=== PATIENT | female | born 1985 | race African-American/Black ===

== ENCOUNTER 2021-04-18 09:12 | Outpatient (REF) | payer OTHER, SELFPAY ==
[2021-04-18 11:28] LABS: MANUAL DIFF FLAG NO
[2021-04-18 11:52] LABS: Basophils Percent Auto 0.6 % (0-2); Eosinophils Absolute Auto 0.1 X10*3/uL (0.0-0.4); Eosinophils Percent Auto 1.7 % (0-4); Hematocrit 31.6 % (37.0-47.0); Hemoglobin 9.6 g/dl (12.0-16.0); Imm Gran Abs Auto 0.01 X10*3/uL (0.00-0.03); Imm Gran Pct Auto 0.2 % (0.0-0.4); Lymphocytes Absolute Auto 1.9 X10*3/uL (1.2-4.9); Lymphocytes Percent Auto 35.8 % (20-40); Mean Corpuscular HGB Conc 30.4 g/dl (31.0-35.0); Mean Corpuscular Hemoglobin 23.2 pg (27.0-33.0); Mean Corpuscular Volume 76.3 fL (80.0-98.0); Mean Platelet Volume 10.5 fL (9.4-12.3); Monocytes Absolute Auto 0.4 X10*3/uL (0.1-1.2); Monocytes Percent Auto 7.3 % (2-11); Neutrophils Absolute Auto 2.9 x10*3/uL (2.0-8.3); Neutrophils Percent Auto 54.4 % (45-73); Platelet Count 343 X10*3/uL (160-400); Red Blood Count 4.14 X10*6/uL (4.20-5.50); Red Cell Distribution Width 20.9 % (11.0-16.0); White Blood Count 5.3 X10*3/uL (4.8-10.8)
[2021-04-18 12:08] LABS: Alanine Aminotransferase 44 U/L (0-31); Albumin Level 4.3 g/dL (3.5-5.0); Alkaline Phosphatase 54 U/L (39-117); Anion Gap 12 (12-20); Aspartate Amino Transferase 36 U/L (5-31); Bilirubin Total 0.5 mg/dL (0.0-1.0); Blood Urea Nitrogen 12 mg/dL (9-16); Calcium 9.4 mg/dL (8.4-10.2); Carbon Dioxide 23 mmol/L (22-29); Chloride 106 mmol/L (96-108); Cholesterol 201 mg/dL; Estimated Glomerular Filt Rate > 60; Glucose Fasting 77 mg/dL (60-99); HDL Cholesterol 40 mg/dL; Iron 53 mcg/dL (30-160); LDL Cholesterol Calculated 139 mg/dl; Percent Iron Saturation 13 % (15-50); Potassium 4.2 mmol/L (3.3-5.1); Sodium 137 mmol/L (135-145); Total Iron Binding Capacity 420 mcg/dL (228-428); Total Protein 7.9 g/dL (6.5-8.0); Triglycerides 112 mg/dL; Unsaturated Iron Binding 367 ug/dL
[2021-04-18 12:31] LABS: Vitamin D 25-OH Total 6.9 ng/mL (>30)
== END 2021-04-18 09:13 | disposition home or self-care (01) ==
LOC: HO.HMGCLDS 09:12
PROVIDERS: PCP Internal Medicine; Visit Provider Internal Medicine
DX: I10 Essential (primary) hypertension (principal); D50.9 Iron deficiency anemia, unspecified
CPT/HCPCS: 36415; 80053; 80061; 82306; 83540; 85025

== ENCOUNTER 2021-08-13 11:29 | Outpatient (REF) | payer OTHER, SELFPAY ==
[2021-08-13 13:50] LABS: MANUAL DIFF FLAG NO
[2021-08-13 14:02] LABS: Basophils Percent Auto 0.5 % (0-2); Eosinophils Absolute Auto 0.1 X10*3/uL (0.0-0.4); Eosinophils Percent Auto 1.4 % (0-4); Hematocrit 28.5 % (37.0-47.0); Hemoglobin 8.5 g/dl (12.0-16.0); Imm Gran Abs Auto 0.02 X10*3/uL (0.00-0.03); Imm Gran Pct Auto 0.3 % (0.0-0.4); Lymphocytes Absolute Auto 2.4 X10*3/uL (1.2-4.9); Lymphocytes Percent Auto 36.3 % (20-40); Mean Corpuscular HGB Conc 29.8 g/dl (31.0-35.0); Mean Corpuscular Hemoglobin 22.5 pg (27.0-33.0); Mean Corpuscular Volume 75.4 fL (80.0-98.0); Mean Platelet Volume 11.2 fL (9.4-12.3); Monocytes Absolute Auto 0.3 X10*3/uL (0.1-1.2); Monocytes Percent Auto 5.1 % (2-11); Neutrophils Absolute Auto 3.7 x10*3/uL (2.0-8.3); Neutrophils Percent Auto 56.4 % (45-73); Platelet Count 399 X10*3/uL (160-400); Red Blood Count 3.78 X10*6/uL (4.20-5.50); Red Cell Distribution Width 15.2 % (11.0-16.0); White Blood Count 6.5 X10*3/uL (4.8-10.8)
[2021-08-13 14:14] LABS: Iron 17 mcg/dL (30-160); Percent Iron Saturation 4 % (15-50); Total Iron Binding Capacity 443 mcg/dL (228-428); Unsaturated Iron Binding 426 ug/dL
[2021-08-13 14:27] LABS: Vitamin D 25-OH Total 24.2 ng/mL (>30)
== END 2021-08-13 11:30 | disposition home or self-care (01) ==
LOC: HO.HMGCLDS 11:29
PROVIDERS: PCP Internal Medicine; Visit Provider Internal Medicine
DX: D50.9 Iron deficiency anemia, unspecified (principal); I10 Essential (primary) hypertension
CPT/HCPCS: 36415; 82306; 83540; 85025

== ENCOUNTER 2022-01-23 10:33 | Outpatient (REF) | payer OTHER, SELFPAY ==
[2022-01-23 15:41] LABS: Influenza A PCR NEGATIVE (Negative); Influenza B PCR NEGATIVE (Negative); Resp Syncy Virus RNA Qual PCR NEGATIVE (Negative); SARS COV2 PCR INHOUSE NEGATIVE (Negative)
== END 2022-01-23 10:34 | disposition home or self-care (01) ==
LOC: HO.LAB 10:33
PROVIDERS: Visit Provider Nurse Practitioner Family
DX: Z20.822 Contact with and (suspected) exposure to COVID-19 (principal); J02.9 Acute pharyngitis, unspecified; R09.89 Other specified symptoms and signs involving the circulatory and respiratory systems
CPT/HCPCS: 0241U

== ENCOUNTER 2022-02-03 09:36 | Outpatient (REF) | payer OTHER, SELFPAY | END 2022-02-03 09:37 | disposition home or self-care (01) | LOC: HO.LAB 09:36 | PROVIDERS: Visit Provider Hospitalist | DX: Z13.89 Encounter for screening for other disorder (principal) ==

== ENCOUNTER 2022-02-03 11:34 | Outpatient (REF) | payer OTHER, SELFPAY ==
[2022-02-03 13:00] LABS: Influenza A PCR NEGATIVE (Negative); Influenza B PCR NEGATIVE (Negative); Resp Syncy Virus RNA Qual PCR NEGATIVE (Negative); SARS COV2 PCR INHOUSE NEGATIVE (Negative)
== END 2022-02-03 11:35 | disposition home or self-care (01) ==
LOC: HO.LNP 11:34
PROVIDERS: Visit Provider Hospitalist
DX: Z20.822 Contact with and (suspected) exposure to COVID-19 (principal); J06.9 Acute upper respiratory infection, unspecified
CPT/HCPCS: 0241U

== ENCOUNTER 2023-07-14 10:51 | Outpatient (AMB) | payer OTHER, SELFPAY ==
[2023-07-14 11:00] VITALS: BP 122/78; PULSE 93; TEMP 36.3; O2SAT 100; BMI 32.3
--- NOTE | 2023-07-14 11:00 | MHC.OFFWIV ---
Intake Vital Signs 07/14/23 11:00 Height 5 ft 4 in Weight 188 lb 4 oz BMI 32.3 BP 122/78 Blood Pressure Location Rt brachial Position Sitting Pulse 93 Pulse Source Pulse Oximeter Temp 97.3 F Temp Source Temporal Artery Scan Pulse Oximetry (%) 100 Oxygen Delivery Method Room Air Intake Visit Reasons: EP high BP/Headache/Allergic reaction Intake Note: Pt presents to the office today for c/o having high blood pressure on Wednesday 140/80. She states she has been having bad headaches for a week. Patient Tobacco Use Status: Never used Tobacco Allergies Benadryl Allergy (Unknown, Verified 07/14/23 11:04) chest discomfort diphenhydramine [From BENADRYL] Allergy (Unknown, Verified 07/14/23 11:04) SEVERE ANXIETY HPI HPI Comments History of Present Illness Details She presents to office with a few complaints She said first, + headaches since last wednesday + fatigue Denies ST congestion, cough, fevers or cold symptoms She called office last week and was waiting to be seen with appointment. Headache is locatedforehead/eyes and sometimes in back of head No HT or LOC No vision changes She has tried ibuprofen without relief She said it is constant tightness; 8/10 No ear pain No dizziness associated No weakness or numbness She has hx of anemia and has been off of her iron tablets for a while Last PCP follow up with 2021 She also had allergic rxn last week She was thinking it was shrimp. Was seen at [facility] ER and she as given prednisone and another medicine until PCP No epi pen given No SOB or throat tightness now. Had itchy hands, hives, mouth/throat itchy Started July 01 and has been off prednisone for 2 weeks [facility] Medical History Vitamin D deficiency Iron deficiency anemia Essential hypertension History of anemia Anxiety with flying History of COVID-19 Surgical History No pertinent past surgical history Family History Maternal Aunt Breast cancer Social History Housing: House Alcohol intake: former Patient Tobacco Use Status: Never used Tobacco e-Cigarette/Vaping Use: Never Used service: No Current occupational status: employed Current occupation: [employer] Cognitive needs: No Hearing needs: No Vision needs: No Review of Systems Const Denies body aches, Denies chills, Reports fatigue, Denies fever(s), Reports headache(s), Denies weight gain and Denies weight loss Eyes Denies blurry vision and Denies change in vision ENT Denies vertigo, Denies dizziness, Denies otalgia, Reports headache(s), Denies sore throat, Denies throat swelling and Reports other (allergic rxn had itchy throat which has resolved) Card Denies chest pain and Denies dyspnea Resp Denies chest congestion, Denies cough and Denies dyspnea GI Denies abdominal pain and Denies vomiting Musc Denies myalgias and Denies tingling Skin/Breast Reports rash (previously with allergic rxn which has resolved) and Denies other (denies tick bite or other skin rashes) Neuro Denies confusion, Denies vertigo, Denies dizziness, Reports headache(s), Denies tingling and Denies paresthesias Psych Denies confusion Endo Reports fatigue Aller/Immun Denies throat swelling Physical Exam Vital Signs: Last Vital Signs Temp 97.3 F 07/14/23 11:00 Pulse 93 07/14/23 11:00 BP 122/78 07/14/23 11:00 Pulse Ox 100 07/14/23 11:00 Oxygen Delivery Method Room Air 07/14/23 11:00 BMI result Body Mass Index 32.3 General: Non-toxic, NAD. Speaking full sentences. Skin: Warm dry throughout Eye: EOMI, PERRLA HENT: Airway patent. Uvula midline. No pharyngeal erythema or edema. No SERVER. Bilateral canals clear. TM non-erythematous, non-bulging. No TM perforation or hemotympanum noted. Respiratory: CTA bilaterally. No wheezes, rales or rhonchi Cardiac: RRR. No murmur MSK: Full ROM extremities. Neurology: A/O x 3. CN 2-12 grossly intact. Finger to nose tracing intact. Negative pronator drift. No aphasia or facial droop. Gait without abnormality Psych: Good mood and affect Const General: No confusion Orientation/consciousness: No confusion Neuro General: No confusion Assessment & Plan Assessment & Plan (1) Fatigue: Code(s): R53.83 - Other fatigue Qualifiers: Fatigue type: unspecified Qualified Code(s): R53.83 - Other fatigue Plan: Patient seen and evaluated. No neurological deficit on exam Discussed avoiding seafood Recommended sooner follow up with PCP about rxn and current symptoms Initial blood work ordered for cbc, bmp, iron panel and thyroid Refill given for supplements Patient gave verbal understanding and had no additional questions or concerns at time of discharge All questions answered (2) Headache: Code(s): R51.9 - Headache, unspecified Qualifiers: Headache type: other headache syndrome Qualified Code(s): G44.89 - Other headache syndrome Plan: see above Orders: Orders Complete Blood Count Auto Diff Today R53.83 - Other fatigue IRON PROFILE Today R53.83 - Other fatigue Basic Metabolic Panel Today R53.83 - Other fatigue TSH reflex Free T4 Today R53.83 - Other fatigue Medications: New ferrous sulfate 325 mg PO BID 20 tabs 0RF Coding Level of Care Code Est Pt Level 3 (67203) Diagnoses Fatigue, unspecified type R53.83 Fatigue type: unspecified Other headache syndrome G44.89 Headache type: other headache syndrome
== END 2023-07-14 11:50 | disposition home or self-care (01) ==
PROVIDERS: PCP Internal Medicine; Visit Provider Physician Assistant
DX: R53.83 Other fatigue (principal); G44.89 Other headache syndrome
CPT/HCPCS: 99213

== ENCOUNTER 2023-07-14 11:38 | Outpatient (REF) | payer OTHER, SELFPAY ==
[2023-07-14 13:38] LABS: MANUAL DIFF FLAG NO
[2023-07-14 14:16] LABS: Basophils Absolute Auto 0.1 X10*3/uL (0.0-0.2); Basophils Percent Auto 0.7 % (0-2); Eosinophils Absolute Auto 0.2 X10*3/uL (0.0-0.4); Eosinophils Percent Auto 1.9 % (0-4); Hematocrit 23.4 % (37.0-47.0); Imm Gran Abs Auto 0.03 X10*3/uL (0.00-0.03); Imm Gran Pct Auto 0.4 % (0.0-0.4); Lymphocytes Absolute Auto 2.3 X10*3/uL (1.2-4.9); Lymphocytes Percent Auto 27.7 % (20-40); Mean Corpuscular HGB Conc 26.1 g/dl (31.0-35.0); Mean Corpuscular Hemoglobin 15.1 pg (27.0-33.0); Mean Platelet Volume 10.6 fL (9.4-12.3); Monocytes Absolute Auto 0.4 X10*3/uL (0.1-1.2); Monocytes Percent Auto 4.8 % (2-11); Neutrophils Absolute Auto 5.4 x10*3/uL (2.0-8.3); Neutrophils Percent Auto 64.5 % (45-73); Platelet Count 519 X10*3/uL (160-400); Red Blood Count 4.03 X10*6/uL (4.20-5.50); Red Cell Distribution Width 20.1 % (11.0-16.0); White Blood Count 8.4 X10*3/uL (4.8-10.8)
[2023-07-14 14:23] LABS: Mean Corpuscular Volume 58.1 fL (80.0-98.0)
[2023-07-14 14:27] LABS: Hemoglobin 6.1 g/dl (12.0-16.0)
[2023-07-14 14:49] LABS: Anion Gap 15 (12-20); Blood Urea Nitrogen 15 mg/dL (9-16); Calcium 8.9 mg/dL (8.4-10.2); Carbon Dioxide 23 mmol/L (22-29); Chloride 107 mmol/L (96-108); Estimated Glomerular Filt Rate > 60; Glucose Random 83 mg/dL (60-115); Iron 9 mcg/dL (30-160); Percent Iron Saturation 2 % (15-50); Potassium 3.9 mmol/L (3.3-5.1); Sodium 141 mmol/L (135-145); TSH reflex Free T4 1.18 uIU/mL (0.32-4.0); Total Iron Binding Capacity 387 mcg/dL (228-428); Unsaturated Iron Binding 378 ug/dL
== END 2023-07-14 11:39 | disposition home or self-care (01) ==
LOC: HO.HMGCLDS 11:38
PROVIDERS: Visit Provider Physician Assistant
DX: R53.83 Other fatigue (principal)
CPT/HCPCS: 36415; 80048; 83540; 84443; 85025

== ENCOUNTER 2023-08-04 09:04 | Outpatient (AMB) | payer OTHER, MEDICAID, SELFPAY ==
--- NOTE | 2023-08-04 09:09 | A.OFFPC_ITS ---
Vital Signs 08/04/23 09:10 Height 5 ft 4 in Weight 184 lb BMI 31.6 BP 110/66 Blood Pressure Location Rt brachial Position Sitting Pulse 83 Pulse Source Pulse Oximeter Pulse Oximetry (%) 100 Oxygen Delivery Method Room Air Intake Visit Reasons: HDF Cierra, anemia with blood transfusion Intake Note: Pt is here today for her HDF anemia Allergies Benadryl Allergy (Unknown, Verified 08/04/23 09:28) chest discomfort diphenhydramine [From BENADRYL] Allergy (Unknown, Verified 08/04/23 09:28) SEVERE ANXIETY shrimp Adverse Reaction (Uncoded 08/04/23 09:28) hives Medication List - Last Reconciled 08/04/23 by Daisha Ni MD alprazolam 0.25 mg PO .1 hour before flying PRN ascorbic acid (vitamin C) 500 mg PO DAILY docusate sodium 100 mg PO BID ferrous sulfate 325 mg PO BID norgestimate-ethinyl estradiol 0.25-35 mg-mcg 1 tab PO DAILY Tobacco use date assessed: 08/04/23 Dental Screening Dental Screen Date: 08/04/23 Did you have a dental visit in the last 12 months?: Yes Did you have a dental problem in the last 6 months where you did not have access to dental care?: Yes Was dental information given to patient?: Patient has dentist HPI HDF Cierra, anemia with blood transfusion HPI Details 38-year-old lady with history of menorrh agia, iron deficiency anemia, anxiety, here today for follow-up after recent hospital admission at [facility] 07/22/23 complaining of jaundice, myalgias, and hematuria. Prior to that admission , she was admitted also at [place] on 07/13-02/26 for symptomatic anemia, and received 2 units of packed RBC transfusion for severe anemia due to heavy periods. At the ER , her total bilirubin was 7.4 and direct bilirubin was 6 with haptoglobin of less than 8 and LDH at 1991 , with a hemoglobin of 6.[address] of abdomen pelvis showed presence of splenomegaly and small amount of free fluid in the posterior cul-de-sac? Ruptured ovarian cyst. Hematology, Dr. Davenport, was consulted, who recommended giving IV Solu-Medrol 60 mg x 1 dose, for treatment of possible hemolytic anemia. Has no past history of hemolysis and it was likely due to delayed hemolytic transfusion reaction. Kavitha test came back negative. She received 3 doses of Solu-Medrol during her hospital stay, hemoglobin remained stable, hematuria resolved she was given IV iron. She was discharged with a Medrol Dosepak and iron supplements, to be taken with vitamin-C, and an appointment to follow-up with Dr. Davenport for further evaluation management. At present patient states that she has been feeling better, but still has easy fatigability, but no chest pain or palpitations, no hematuria, no joint pain. She had a CBC done 07/30/2023 which showed hemoglobin at 9.4 with a hematocrit 33, platelet 449 with a an mild elevation in her white blood cell count likely due to steroids at 11.5. Her TIBC was 346 with a serum iron at 100 and iron saturation at 29 and ferritin at 90. . She also would like a referral to an digital content marketing manager, has been having severe reactions when eating shrimp, where in she develops generalized hives and wheezing. 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 1. Little interest or pleasure in doing things: not at all 2. Feeling down, depressed, or hopeless: not at all 3. Trouble falling or staying asleep, or sleeping too much: not at all 4. Feeling tired or having little energy: not at all 5. Poor appetite or overeating: not at all 6. Feeling bad about yourself - or that you are a failure or have let yourself or your family down: not at all 7. Trouble concentrating on things, such as reading the newspaper or watching television: not at all 8. Moving or speaking so slowly that other people could have noticed. Or the opposite - being so fidgety or restless that you have been moving around a lot more than usual: not at all 9. Thoughts that you would be better off or of hurting yourself in some way: not at all Total score: 0 Depression Screening Interpretation: Negative Depression Screening Done: Yes 30460 - PHQ-9 Billing: Yes Source: Developed by Drs. Kristofer Milan, Adriana Lu, Josh Chase and colleagues, with an educational ela from [employer]. Thrive Questionnaire Date Thrive assessed: 08/04/23 I am a: Patient What is your living situation today?: I have a steady place to live Within the past 12 months, did the food you bought not last and you didn't have the money to get more?: Never true Within the past 12 months, did you worry whether your food would run out before you got money to buy more?: Never true Do you have trouble paying for medicines?: No Do you have trouble getting transportation to medical appointments?: No Do you have trouble paying your heating and electricity bill?: No Do you have trouble taking care of your child, family member or friend?: No Do you have trouble with day-to-day activities such as bathing, preparing meals, shopping, managing finances, etc.?: No Are you currently unemployed and looking for a job?: No Are you interested in more education?: No THRIVE Score: 0 AUDIT C Alcohol Use Questionnaire (AUDIT-C) 1. How often do you have a drink containing alcohol?: Monthly or less 2. How many drinks containing alcohol do you have on a typical day when you are drinking?: 1 or 2 3. How often do you have six or more drinks on one occasion?: Never Total Score: 1 MAHAMED-7 AMB Questionnaire MAHAMED-7 Date MAHAMED - 7 assessed: 08/04/23 Feeling nervous, anxious, or on edge: 1 = Several days Not being able to stop or control worryin = Several days Worrying too much about different things: 1 = Several days Trouble relaxin = Not at all Being so restless that it is hard to sit still: 1 = Several days Becoming easily annoyed or irritable: 0 = Not at all Feeling afraid as if something awful might happen: 0 = Not at all Total MAHAMED-7 score (0-4 normal; 5-9 mild; 10-14 moderate; 15-21 severe): 4 Source: Developed by Drs. Kristofer Milan, Adriana Lu, Josh Chase and colleagues, with an educational ela from [employer]. MAHAMED-7 Assessment Billing MAHAMED-7 Assessment Tool: MAHAMED-7 Assessment 77525 Review of Systems Const Denies body aches, Denies chills, Reports fatigue and Denies fever(s) Eyes Denies blurry vision ENT Denies vertigo, Denies dizziness, Denies otalgia, Denies sore throat and Denies throat swelling Card Denies chest pain and Denies dyspnea Resp Denies chest congestion, Denies cough and Denies dyspnea GI Denies abdominal pain, Reports constipation and Denies vomiting Reports no additional complaints Musc Denies myalgias and Denies tingling Skin/Breast Denies lesions and Denies rash Neuro Denies confusion, Denies vertigo, Denies dizziness, Denies tingling and Denies paresthesias Psych Denies confusion Endo Reports fatigue Jmaal/Lymph Reports no additional complaints Aller/Immun Denies throat swelling and Reports other (History anaphylactic reaction to s hrimp) Physical exam (Primary Care) Vital Signs: Last Vital Signs Pulse 83 08/04/23 09:10 BP 110/66 08/04/23 09:10 Pulse Ox 100 08/04/23 09:10 Oxygen Delivery Method Room Air 08/04/23 09:10 BMI result Body Mass Index 31.6 Tobacco/Smoking Status: Tobacco use Status Tobacco use date assessed 08/04/23 08/04/23 09:18 Patient Tobacco Use Status Never used Tobacco 08/04/23 09:10 e-Cigarette/Vaping Use Never Used 08/04/23 09:10 PHQ-9: PHQ-9 Score PHQ-9: Total score 0 08/04/23 09:58 Depression Screening Interpretation: Negative Thrive Assessment: Date of Thrive Assessment Date Thrive assessed 08/04/23 08/04/23 09:19 Const Other: Alert oriented x3, no acute cardiorespiratory distress General: No confusion Nutritional Appearance: obese Orientation/consciousness: No confusion HENMT Ears: external ears normal General nose exam: Normal external nose present Face and sinus: Yes face symmetric Mouth: Normal oral and palatal mucosa present and moist mucous membranes Eyes Other: Anicteric, Pale palpebral conjunctiva Neck Other: Supple, no lymphadenopathy, thyroid nonpalpable Resp Effort & Inspection: normal respiratory effort and able to speak in complete sentences Auscultation: clear to auscultation bilaterally Cardio Other: S1-S2 present regular rate and rhythm GI Palpation (GI): Soft to palpation, nontender, no guarding, Splenomegaly present and no masses Back/Spine/Pelvis Back: No back tenderness Skin General skin exam: no rashes or lesions noted Neuro General: No confusion Cognition (Neuro): normal cognition Gait exam (Neuro): Normal gait present Extrem General: Yes full ROM, Yes no joint enlargement, Yes no clubbing, cyanosis or edema, Yes no pedal edema, Yes no calf tenderness and Yes normal gait Psych Appearance: grossly normal and well kempt Mental Status: mental status grossly normal Speech and movement: Normal speech and movement present Affect: normal affect Assessment and Plan Assessment & Plan (1) Iron deficiency anemia: Code(s): D50.9 - Iron deficiency anemia, unspecified Qualifiers: Iron deficiency anemia type: chronic blood loss Qualified Code(s): D50.0 - Iron deficiency anemia secondary to blood loss (chronic) Plan: Recently seen by Dr. Davenport at [place], and prescribed ferrous sulfate 324 mg taken 1 tablet twice a day together with vitamin-C tablets for better absorption. She has an appointment for follow-up with her in November 2023 to do a repeat CBC and iron profile prior to that appointment. (2) Menorrhagia: Code(s): N92.0 - Excessive and frequent menstruation with regular cycle Plan: Currently followed by Dr. Pedro, and was started on oral contraceptive pills a week ago (3) History of food anaphylaxis: Code(s): Z91.018 - Allergy to other foods Plan: referral to [facility] ordered for further evaluation, patient unable to take Benadryl as she has an anaphylactic reaction from the medication (4) Constipation: Code(s): K59.00 - Constipation, unspecified Plan: Prescription sent for docusate sodium 100 mg per capsule to take 1 capsule once or twice a day as needed for constipation. Stay well-hydrated Orders: Referrals Allergy & Immunology Referral Z91.018 - Allergy to other foods Medications: New norgestimate-ethinyl estradiol 0.25-35 mg-mcg 1 tab PO DAILY docusate sodium 100 mg PO BID 60 caps 5RF Coding Level of Care Code Est Pt Level 4 (39000) Diagnoses Iron deficiency anemia due to chronic blood loss D50.0 Iron deficiency anemia type: chronic blood loss Menorrhagia N92.0 History of food anaphylaxis Z91.018 Constipation K59.00 Additional Codes MAHAMED-7 Assessment Billing - MAHAMED-7 Assessment Tool: MAHAMED-7 Assessment 02102 ([id number])
[2023-08-04 09:10] VITALS: BP 110/66; PULSE 83; O2SAT 100; BMI 31.6
== END 2023-08-04 10:07 | disposition home or self-care (01) ==
PROVIDERS: PCP Internal Medicine; Visit Provider Internal Medicine
DX: D50.0 Iron deficiency anemia secondary to blood loss (chronic) (principal); N92.0 Excessive and frequent menstruation with regular cycle; Z91.018 Allergy to other foods; K59.00 Constipation, unspecified
CPT/HCPCS: 99214

== ENCOUNTER 2023-08-25 09:53 | Outpatient (AMB) | payer OTHER, MEDICAID, SELFPAY ==
[2023-08-25 10:31] VITALS: BP 122/78; PULSE 76; TEMP 36.8; O2SAT 100
--- NOTE | 2023-08-25 10:31 | AM.OFFWIN_ITS ---
Intake Vital Signs 08/25/23 10:31 Height 5 ft 4 in BP 122/78 Blood Pressure Location Rt brachial Position Sitting Pulse 76 Pulse Source Pulse Oximeter Temp 98.2 F Temp Source Oral Pulse Oximetry (%) 100 Intake Visit Reasons: EP back pain Intake Note: pt is here for back pain since august 05 but more intense the last few days Patient Tobacco Use Status: Never used Tobacco Allergies Benadryl Allergy (Unknown, Verified 08/25/23 10:31) chest discomfort diphenhydramine [From BENADRYL] Allergy (Unknown, Verified 08/25/23 10:31) SEVERE ANXIETY shrimp Adverse Reaction (Uncoded 08/04/23 09:28) hives Do you need a note to return to daycare/school/sports/work: No HPI HPI Comments History of Present Illness Details 38 y/o female patient who presents to [facility] with c/o thoracic/lumbar region back pain since August 05. Reports in the past few days pain has been getting worse. Denies urinary or bowel symptoms. Pt very uncomfortable and emotional - crying during the visit. 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 Cognitive needs: No Hearing needs: No Vision needs: No Review of Systems Const All systems reviewed & are unremarkable except as noted in HPI and below Physical Exam Vital Signs: Last Vital Signs Temp 98.2 F 08/25/23 10:31 Pulse 76 08/25/23 10:31 BP 122/78 08/25/23 10:31 Pulse Ox 100 08/25/23 10:31 Const General: no acute distress; No comfortable Nutritional Appearance: obese Orientation/consciousness: patient oriented x3 Back/Spine/Pelvis Back: back tenderness Thoracic/Lumbar Spine: thoracic and lumbar spine normal to inspection, thoraco- lumbar ROM normal (With pain), thoraco-lumbar spasm, thoracic spinal tenderness at T11 and at T12 and lumbar spinal tenderness at L3, at L4 and at L5 Neuro General: patient oriented x3, gait normal and moves all extremities Psych Speech and movement: Normal speech and movement present Assessment & Plan Assessment & Plan (1) Low back pain: Code(s): M54.50 - Low back pain, unspecified Qualifiers: Back pain laterality: bilateral Chronicity: acute Sciatica presence: without sciatica Qualified Code(s): M54.50 - Low back pain, unspecified Plan: - Advised Pt to go to ED if pain severe - Acetaminophen for pain relief - Amb Ketorolac 60 mg - Xray back. Orders: Orders XR lumbar spine 2-3V Today M54.50 - Low back pain, unspecified, M54.6 - Pain in thoracic spine AMB Ketorolac Injection Today M54.50 - Low back pain, unspecified XR thoracic spine 2V Today M54.50 - Low back pain, unspecified, M54.6 - Pain in thoracic spine Medications: New ketorolac 60 mg (2 mL) IM ONCE 2 mL 0RF pain (scale score 7-10) M54.50 - Low back pain, unspecified lidocaine 5% leave on most painful area for up to 12 hrs 1 patch topical DAILY 15 ea 0RF back pain M54.50 - Low back pain, unspecified metaxalone 800 mg PO TID 20 tabs 0RF M54.50 - Low back pain, unspecified acetaminophen 1,000 mg (2 x 500 mg) PO Q6H PRN 30 caps 0RF fever M54.50 - Low back pain, unspecified Coding Level of Care Code Est Pt Level 4 (79554) Diagnoses Acute bilateral low back pain without sciatica M54.50 Back pain laterality: bilateral Chronicity: acute Sciatica presence: without sciatica Time Spent (min) 20
== END 2023-08-25 12:35 | disposition home or self-care (01) ==
PROVIDERS: PCP Internal Medicine; Visit Provider Nurse Practitioner Family
DX: M54.50 Low back pain, unspecified (principal)
CPT/HCPCS: 96372; 99214; J1885

== ENCOUNTER 2023-08-25 10:50 | Outpatient (REF) | payer OTHER, MEDICAID, SELFPAY ==
--- NOTE | ~2023-08-25 | XR_ITS ---
Indication: Pain EXAMINATION: Thoracic spine, lumbar sacral spine. No films to compare. 3 views of the lumbar sacral spine demonstrate scoliosis convex right apex at D12. The vertebral heights are well-preserved. The disc spaces are fairly well-preserved. There is no evidence for listhesis or compression injury. Some possible mild spurring of the endplates indicate some mild early degeneration. The SI joints are grossly patent. 2 views of the thoracic spine demonstrate scoliosis convex left apex at D8-D9. No listhesis or compression injury. Some early degenerative changes with some mild spurring in the endplates is noted. Vertebral heights are well-preserved. XR/XR lumbar spine 2-3V IMPRESSION: Scoliosis is noted here and some mild early degenerative changes are likely present. No listhesis or compression injury
--- NOTE | ~2023-08-25 | XR_ITS ---
Indication: Pain EXAMINATION: Thoracic spine, lumbar sacral spine. No films to compare. 3 views of the lumbar sacral spine demonstrate scoliosis convex right apex at D12. The vertebral heights are well-preserved. The disc spaces are fairly well-preserved. There is no evidence for listhesis or compression injury. Some possible mild spurring of the endplates indicate some mild early degeneration. The SI joints are grossly patent. 2 views of the thoracic spine demonstrate scoliosis convex left apex at D8-D9. No listhesis or compression injury. Some early degenerative changes with some mild spurring in the endplates is noted. Vertebral heights are well-preserved. XR/XR thoracic spine 2V IMPRESSION: Scoliosis is noted here and some mild early degenerative changes are likely present. No listhesis or compression injury
== END 2023-08-25 10:51 | disposition home or self-care (01) ==
LOC: HO.HMGCX 10:50
PROVIDERS: PCP Internal Medicine; Visit Provider Nurse Practitioner Family
DX: M54.50 Low back pain, unspecified (principal); M54.6 Pain in thoracic spine
CPT/HCPCS: 72070; 72100

== ENCOUNTER 2023-09-28 08:29 | Outpatient (REF) | payer OTHER, MEDICAID, SELFPAY ==
[2023-09-28 11:38] LABS: MANUAL DIFF FLAG NO
[2023-09-28 11:54] LABS: Basophils Percent Auto 0.5 % (0-2); Eosinophils Absolute Auto 0.2 X10*3/uL (0.0-0.4); Eosinophils Percent Auto 3.6 % (0-4); Hematocrit 35.4 % (37.0-47.0); Hemoglobin 11.5 g/dl (12.0-16.0); Imm Gran Abs Auto 0.04 X10*3/uL (0.00-0.03); Imm Gran Pct Auto 0.6 % (0.0-0.4); Lymphocytes Absolute Auto 2.4 X10*3/uL (1.2-4.9); Lymphocytes Percent Auto 39.5 % (20-40); Mean Corpuscular HGB Conc 32.5 g/dl (31.0-35.0); Mean Corpuscular Hemoglobin 27.4 pg (27.0-33.0); Mean Corpuscular Volume 84.3 fL (80.0-98.0); Mean Platelet Volume 10.9 fL (9.4-12.3); Monocytes Absolute Auto 0.4 X10*3/uL (0.1-1.2); Neutrophils Absolute Auto 3.1 x10*3/uL (2.0-8.3); Neutrophils Percent Auto 49.8 % (45-73); Platelet Count 314 X10*3/uL (160-400); Red Cell Distribution Width 14.1 % (11.0-16.0); White Blood Count 6.2 X10*3/uL (4.8-10.8)
[2023-09-28 12:15] LABS: Alanine Aminotransferase 9 U/L (0-31); Albumin Level 3.8 g/dL (3.5-5.0); Alkaline Phosphatase 37 U/L (39-117); Anion Gap 11 (12-20); Aspartate Amino Transferase 13 U/L (5-31); Bilirubin Total 0.3 mg/dL (0.0-1.0); Blood Urea Nitrogen 12 mg/dL (9-16); Calcium 8.6 mg/dL (8.4-10.2); Carbon Dioxide 21 mmol/L (22-29); Chloride 110 mmol/L (96-108); Estimated Glomerular Filt Rate > 60; Glucose Fasting 92 mg/dL (60-99); Iron 84 mcg/dL (30-160); Percent Iron Saturation 25 % (15-50); Potassium 3.8 mmol/L (3.3-5.1); Sodium 138 mmol/L (135-145); Total Iron Binding Capacity 340 mcg/dL (228-428); Unsaturated Iron Binding 256 ug/dL
[2023-09-28 12:32] LABS: Vitamin D 25-OH Total 26.8 ng/mL (>30)
[2023-09-28 12:34] LABS: Vitamin B12 205 pg/mL (200-900)
== END 2023-09-28 08:30 | disposition home or self-care (01) ==
LOC: HO.HMGCLDS 08:29
PROVIDERS: PCP Internal Medicine; Visit Provider Internal Medicine
DX: I10 Essential (primary) hypertension (principal); D50.0 Iron deficiency anemia secondary to blood loss (chronic); E55.9 Vitamin D deficiency, unspecified; N92.0 Excessive and frequent menstruation with regular cycle
CPT/HCPCS: 36415; 80053; 82306; 82607; 82746; 83540; 85025

== ENCOUNTER 2023-09-29 08:34 | Outpatient (AMB) | payer OTHER, MEDICAID, SELFPAY ==
[2023-09-29 08:46] VITALS: BP 110/70; PULSE 68; O2SAT 99; BMI 32.3
--- NOTE | 2023-09-29 08:46 | MHC.PC.OV ---
Vital Signs 09/29/23 08:46 Height 5 ft 4 in Weight 188 lb BMI 32.3 BP 110/70 Blood Pressure Location Rt brachial Position Sitting Pulse 68 Pulse Source Pulse Oximeter Pulse Oximetry (%) 99 Oxygen Delivery Method Room Air Intake Visit Reasons: Annual PE Intake Note: Pt is here today for her PE: Last papsmear Allergies Benadryl Allergy (Unknown, Verified 09/29/23 09:27) chest discomfort diphenhydramine [From BENADRYL] Allergy (Unknown, Verified 09/29/23 09:27) SEVERE ANXIETY shrimp Adverse Reaction (Uncoded 09/29/23 09:27) hives Medication List - Last Reconciled 09/29/23 by Daisha Ni MD acetaminophen 1,000 mg (2 x 500 mg) PO Q6H PRN alprazolam 0.25 mg PO .1 hour before flying PRN ascorbic acid (vitamin C) 500 mg PO DAILY ferrous sulfate 325 mg PO BID lidocaine 5% 1 patch topical DAILY norgestimate-ethinyl estradiol 0.25-35 mg-mcg 1 tab PO DAILY Tobacco use date assessed: 09/29/23 Dental Screening Dental Screen Date: 09/29/23 Did you have a dental visit in the last 12 months?: Yes Did you have a dental problem in the last 6 months where you did not have access to dental care?: Yes Was dental information given to patient?: Patient has dentist HPI Annual PE HPI Details 38-year-old lady with history of menorrhagia, iron deficiency anemia, anxiety, hypertension, dyslipidemia, here today for her physical exam. She recently received blood transfusion in July, developed delayed hemolytic transfusion reaction, with no immune disease identified. She is currently being followed by OBGYN at [place], who started her on control pills. Has been feeling well except for occasional painful muscle spasms in lower back. [facility] Medical History (Updated 10/11/23 @ 00:46 by Daisha Ni MD) Delayed hemolytic transfusion reaction Dyslipidemia Menorrhagia History of food anaphylaxis Vitamin D deficiency Iron deficiency anemia Essential hypertension History of anemia Anxiety with flying History of COVID-19 Surgical History No pertinent past surgical history Family History Maternal Aunt Breast cancer Social History Housing: House Alcohol intake: former Patient Tobacco Use Status: Never used Tobacco e-Cigarette/Vaping Use: Never Used service: No Current occupational status: employed 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 Depression Screening Interpretation: Negative Depression Screening Done: Yes Source: Developed by Drs. Kristofer Milan, Adriana Lu, Josh Chase and colleagues, with an educational ela from [employer]. Thrive Questionnaire Date Thrive assessed: 08/04/23 MAHAMED-7 AMB Questionnaire MAHAMED-7 Date MAHAMED - 7 assessed: 08/04/23 Source: Developed by Drs. Kristofer Milan, Adriana Lu, Josh Chase and colleagues, with an educational ela from [employer]. Review of Systems Const Denies body aches, Denies chills, Reports fatigue and Denies fever(s) Eyes Denies blurry vision ENT Denies vertigo, Denies dizziness, Denies otalgia, Denies sore throat and Denies throat swelling Card Denies chest pain and Denies dyspnea Resp Denies chest congestion, Denies cough and Denies dyspnea GI Denies abdominal pain, Reports constipation and Denies vomiting Reports no additional complaints Musc Reports as per HPI, Denies myalgias and Denies tingling Skin/Breast Denies lesions and Denies rash Neuro Denies confusion, Denies vertigo, Denies dizziness, Denies tingling and Denies paresthesias Psych Denies confusion Endo Reports fatigue Jamal/Lymph Reports no additional complaints Aller/Immun Denies throat swelling and Reports other (History anaphylactic reaction to shrimp) Physical exam (Primary Care) Vital Signs: Last Vital Signs Pulse 68 09/29/23 08:46 BP 110/70 09/29/23 08:46 Pulse Ox 99 09/29/23 08:46 Oxygen Delivery Method Room Air 09/29/23 08:46 BMI result Body Mass Index 32.3 Tobacco/Smoking Status: Tobacco use Status Tobacco use date assessed 09/29/23 09/29/23 08:47 Patient Tobacco Use Status Never used Tobacco 09/29/23 08:47 e-Cigarette/Vaping Use Never Used 09/29/23 08:47 Depression Screening Interpretation: Negative Thrive Assessment: Date of Thrive Assessment Date Thrive assessed 08/04/23 09/29/23 08:47 Const Other: Alert oriented x3, no acute cardiorespiratory distress General: No confusion Nutritional Appearance: obese Orientation/consciousness: No confusion HENMT Ears: external ears normal General nose exam: Normal external nose present Face and sinus: Yes face symmetric Mouth: Normal oral and palatal mucosa present and moist mucous membranes Eyes General: appearance normal, both eyes and all related structures Neck Other: Supple, no lymphadenopathy, thyroid nonpalpable Chest Chest palpation & inspection: normal inspection of the chest Breast/axilla palpation: normal palpation of the breasts Resp Effort & Inspection: normal respiratory effort and able to speak in complete sentences Auscultation: clear to auscultation bilaterally Cardio Other: S1-S2 present regular rate and rhythm GI Palpation (GI): Soft to palpation, nontender, no guarding, Splenomegaly present and no masses Other: Goes to her own OBGYN at [facility] for her routine Pap and pelvic exam General: Yes no CVA tenderness Back/Spine/Pelvis Back: no CVA tenderness and No back tenderness Skin General skin exam: no rashes or lesions noted Neuro General: No confusion Cognition (Neuro): normal cognition Gait exam (Neuro): Normal gait present Extrem General: Yes full ROM, Yes no joint enlargement, Yes no clubbing, cyanosis or edema, Yes no pedal edema, Yes no calf tenderness and Yes normal gait Psych Appearance: grossly normal and well kempt Mental Status: mental status grossly normal Speech and movement: Normal speech and movement present Affect: normal affect Results Reviewed Results Reviewed: obi rosa: Nancy Bermudez Age/Sex: 38/F : 1985 Unit#: [id number] Attend Dr: Daisha Ni MD Re09/28/23 Status: DEP REF Location: [facility] Disch: SPEC : [id number] BLAINE: 09/28/23 STATUS: COMP REQ : [id number] RECD: 09/28/23-[address]: Daisha Ni MD COMP: 09/28/23 ENTERED: 09/28/[address]: ORDERED: CBC Auto Diff Test Result Flag Reference WBC 6.2 4.8-10.8 X10*3/uL RBC 4.20 4.20-5.50 X10*6/uL HGB 11.5 # L 12.0-16.0 g/dl HCT 35.4 # L 37.0-47.0 % MCV 84.3 80.0-98.0 fL MCH 27.4 27.0-33.0 pg MCHC 32.5 31.0-35.0 g/dl RDW 14.1 11.0-16.0 % PLT 314 # 160-400 X10*3/uL MPV 10.9 9.4-12.3 fL Neut Pct Auto 49.8 45-73 % ImGran Pct Auto 0.6 H 0.0-0.4 % Lymp Pct Auto 39.5 20-40 % Wallace Pct Auto 6.0 2-11 % Eos Pct Auto 3.6 0-4 % Baso Pct Auto 0.5 0-2 % NRBC Pct Auto 0.0 0.0-0.2 /100WBC ANC Neut Abs # 3.1 2.0-8.3 x10*3/uL ImGran Abs Auto 0.04 H 0.00-0.03 X10*3/uL Lymph Abs Auto 2.4 1.2-4.9 X10*3/uL Wallace Abs Auto 0.4 0.1-1.2 X10*3/uL Eos Abs Auto 0.2 0.0-0.4 X10*3/uL Baso Abs Auto 0.0 0.0-0.2 X10*3/uL NRBC Abs Auto 0.000 0.0-0.012 X10*3/uL rosa: Nancy Bermudez Age/Sex: 38/F : 1985 Unit#: [id number] Attend Dr: Daisha Ni MD Re09/28/23 Status: DEP REF Location: [facility] Disch: SPEC : [id number] BLAINE: 09/28/23 STATUS: COMP REQ : [id number] RECD: 09/28/23-[address] [facility] [address]: Daisha Ni MD COMP: 09/28/23-123 ENTERED: 09/28/[address] [facility] [address]: ORDERED: CMP Fast, IRON PROF, Vitamin D 25-OH Test Result Flag Reference Sodium 138 135-145 mmol/L Potassium 3.8 3.3-5.1 mmol/L CL 110 H 96-108 mmol/L CO2 21 L 22-29 mmol/L Gap 11 L 12-20 BUN 12 9-16 mg/dL Creat 0.69 0.5-1.4 mg/dL EGFR > 60 NOTE: For -[place] individuals, multiply the result by 1.210. Chronic Kidney Disease: Estimated GFR < 60 mL/min/1.73m2 Severe Kidney Disease: Estimated GFR < 15 mL/min/1.73m2 FBS 92 60-99 mg/dL CA 8.6 8.4-10.2 mg/dL Iron 84 30-160 mcg/dL TIBC 340 228-428 mcg/dL Saturation 25 15-50 % UIBC 256 ug/dL Total Bili 0.3 0.0-1.0 mg/dL AST (GOT) 13 5-31 U/L ALT (GPT) 9 0-31 U/L Protein, Total 7.0 6.5-8.0 g/dL Alb 3.8 3.5-5.0 g/dL Alk Phos 37 L 39-117 U/L Vit D 25-OH Tot 26.8 L >30 ng/mL Health Based Reference Values* < 20 ng/mL Deficient 20-30 ng/mL Insufficient > 30 ng/mL Sufficient Assessment and Plan Assessment & Plan (1) Annual visit for general adult medical examination with abnormal findings: Code(s): Z00.01 - Encounter for general adult medical examination with abnormal findings Plan: Will check appropriate labs. Recommended dental visit every 6 months and regular eye exams, at least every 2 years. Instructed to do self-breast exam, and recommended to get yearly mammogram, starting at age 40. Goes to OBGYN for her routine Pap and pelvic exam has had COVID vaccines in the past but does not want to get the booster, reminded to get her yearly flu shot, up-to-date with Tdap (2) Vitamin D deficiency: Code(s): E55.9 - Vitamin D deficiency, unspecified Plan: Latest fasting labs showed deficient vitamin D level. Prescription sent for cholecalciferol 86082 units per capsule to take once a week for the next 3 months. Once finished taking the prescription, to continue taking [id number] vitamin-D 3 at 2000 units daily (3) Muscle spasm of back: Code(s): M62.830 - Muscle spasm of back Plan: Advised to apply local heat affected area, prescription sent for tizanidine 4 mg per tablet to take 1 tablet twice a day as needed for painful muscle spasms (4) Menorrhagia: Code(s): N92.0 - Excessive and frequent menstruation with regular cycle Plan: Currently followed by OBGYN, started on control pills. (5) Iron deficiency anemia: Code(s): D50.9 - Iron deficiency anemia, unspecified Qualifiers: Iron deficiency anemia type: chronic blood loss Qualified Code(s): D50.0 - Iron deficiency anemia secondary to blood loss (chronic) Plan: Recently had blood transfusion but developed delayed hemolytic transfusion reaction. Will continue on ferrous sulfate 325 mg taken 1 tab twice a day and advised to take it with vitamin-C or orange juice for better absorption. Orders: Orders Lipid Panel 11/04/23 E78.5 - Hyperlipidemia, unspecified Vitamin D 25-OH Total 11/04/23 D50.0 - Iron deficiency anemia secondary to blood loss (chronic), E55.9 - Vitamin D deficiency, unspecified Vitamin B12 and Folate 11/04/23 D50.0 - Iron deficiency anemia secondary to blood loss (chronic), E55.9 - Vitamin D deficiency, unspecified Medications: New cholecalciferol (vitamin D3) 1,250 mcg PO QWEEK 13 caps 0RF 3 months E55.9 - Vitamin D deficiency, unspecified tizanidine 4 mg PO BID PRN 30 tabs 0RF Painful muscle spasm Coding Level of Care Code Est Pt Prev Care 18-39y(52045) Diagnoses Annual visit for general adult medical examination with abnormal findings Z00.01 Vitamin D deficiency E55.9 Muscle spasm of back M62.830 Menorrhagia N92.0 Iron deficiency anemia due to chronic blood loss D50.0 Iron deficiency anemia type: chronic blood loss
== END 2023-09-29 09:51 | disposition home or self-care (01) ==
PROVIDERS: PCP Internal Medicine; Visit Provider Internal Medicine
DX: Z00.01 Encounter for general adult medical examination with abnormal findings (principal); N92.0 Excessive and frequent menstruation with regular cycle; D50.0 Iron deficiency anemia secondary to blood loss (chronic); E55.9 Vitamin D deficiency, unspecified; M62.830 Muscle spasm of back
CPT/HCPCS: 99213; 99395

== ENCOUNTER 2024-06-13 12:58 | Outpatient (AMB) | payer OTHER, MEDICAID, SELFPAY ==
[2024-06-13 13:04] VITALS: BP 108/80; PULSE 96; RESP 15; TEMP 36.7; O2SAT 99; BMI 35.7
--- NOTE | 2024-06-13 13:04 | A.OFFPC_ITS ---
Vital Signs 06/13/24 13:04 Height 5 ft 4 in Weight 208 lb BMI 35.7 BP 108/80 Blood Pressure Location Rt brachial Position Sitting Respiration 15 Pulse 96 Pulse Source Pulse Oximeter Temp 98.1 F Temp Source Oral Pulse Oximetry (%) 99 Oxygen Delivery Method Room Air Intake Visit Reasons: unexplain bruising Intake Note: Pt is here today c/o unexplained bruising Allergies shrimp Adverse Reaction (Uncoded 06/19/24 02:17) hives Medication List - Last Reconciled 06/19/24 by Daisha Ni MD acetaminophen 1,000 mg (2 x 500 mg) PO Q6H PRN alprazolam 0.25 mg PO .1 hour before flying PRN ascorbic acid (vitamin C) 500 mg PO DAILY ferrous sulfate 325 mg PO BID norgestimate-ethinyl estradiol 0.25-35 mg-mcg 1 tab PO DAILY Tobacco use date assessed: 06/13/24 Dental Screening Dental Screen Date: 06/13/24 Did you have a dental visit in the last 12 months?: Yes Did you have a dental problem in the last 6 months where you did not have access to dental care?: No Was dental information given to patient?: Patient has dentist HPI unexplain bruising HPI Details 39-year-old lady here today complaining of appearance of multiple hyperpigmented spots on both legs, which has started appearing several weeks a gain. Patient states that they look like bruises but she has not had any injury to these areas. They are not painful touch, and are not itchy. She also is here for follow-up on her anemia. Currently taking ferrous sulfate 325 mg twice a day. Patient also requesting a prescription for alprazolam, to have as needed for any acute anxiety attacks that might occur when she travels by plane next month. [facility] Medical History (Updated 06/13/24 @ 13:36 by Daisha Ni MD) Easy bruisability Delayed hemolytic transfusion reaction Dyslipidemia Menorrhagia History of food anaphylaxis Vitamin D deficiency Iron deficiency anemia Essential hypertension History of anemia Anxiety with flying History of COVID-19 Surgical History No pertinent past surgical history Family History Maternal Aunt Breast cancer Social History Housing: House Alcohol intake: former Patient Tobacco Use Status: Never used Tobacco e-Cigarette/Vaping Use: Never Used service: No Current occupational status: employed 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 1. Little interest or pleasure in doing things: not at all 2. Feeling down, depressed, or hopeless: not at all 3. Trouble falling or staying asleep, or sleeping too much: several days 4. Feeling tired or having little energy: several days 5. Poor appetite or overeating: not at all 6. Feeling bad about yourself - or that you are a failure or have let yourself or your family down: not at all 7. Trouble concentrating on things, such as reading the newspaper or watching television: not at all 8. Moving or speaking so slowly that other people could have noticed. Or the opposite - being so fidgety or restless that you have been moving around a lot more than usual: several days 9. Thoughts that you would be better off or of hurting yourself in some way: not at all Total score: 3 Depression Screening Interpretation: Negative Depression Screening Done: Yes 63370 - PHQ-9 Billing: Yes Source: Developed by Drs. Kristofer Milan, Adriana Lu, Josh Chase and colleagues, with an educational ela from [employer]. Thrive Questionnaire Date Thrive assessed: 06/13/24 I am a: Patient What is your living situation today?: I have a steady place to live Within the past 12 months, did the food you bought not last and you didn't have the money to get more?: Never true Within the past 12 months, did you worry whether your food would run out before you got money to buy more?: Never true Do you have trouble paying for medicines?: No Do you have trouble getting transportation to medical appointments?: No Do you have trouble paying your heating and electricity bill?: No Do you have trouble taking care of your child, family member or friend?: No Do you have trouble with day-to-day activities such as bathing, preparing meals, shopping, managing finances, etc.?: No Are you currently unemployed and looking for a job?: No Are you interested in more education?: No Please select the resources that you would like help with: None Currently or been in a relationship where the following occur: No concerns reported THRIVE Score: 0 AUDIT C Alcohol Use Questionnaire (AUDIT-C) 1. How often do you have a drink containing alcohol?: Monthly or less 2. How many drinks containing alcohol do you have on a typical day when you are drinking?: 1 or 2 3. How often do you have six or more drinks on one occasion?: Never Total Score: 1 MAHAMED-7 AMB Questionnaire MAHAMED-7 Date MAHAMED - 7 assessed: 06/13/24 Feeling nervous, anxious, or on edge: 1 = Several days Not being able to stop or control worryin = Several days Worrying too much about different things: 1 = Several days Trouble relaxin = Several days Being so restless that it is hard to sit still: 0 = Not at all Becoming easily annoyed or irritable: 1 = Several days Feeling afraid as if something awful might happen: 0 = Not at all Total MAHAMED-7 score (0-4 normal; 5-9 mild; 10-14 moderate; 15-21 severe): 5 Source: Developed by Drs. Kristofer Milan, Adriana Lu, Josh Chase and colleagues, with an educational ela from [employer]. MAHAMED-7 Assessment Billing MAHAMED-7 Assessment Tool: MAHAMED-7 Assessment 36698 Review of Systems Const All systems reviewed & are unremarkable except as noted in HPI and below Physical exam (Primary Care) Vital Signs: Last Vital Signs Temp 98.1 F 06/13/24 13:04 Pulse 96 06/13/24 13:04 Resp 15 06/13/24 13:04 BP 108/80 06/13/24 13:04 Pulse Ox 99 06/13/24 13:04 Oxygen Delivery Method Room Air 06/13/24 13:04 BMI result Body Mass Index 35.7 Tobacco/Smoking Status: Tobacco use Status Tobacco use date assessed 06/13/24 06/13/24 13:12 Patient Tobacco Use Status Never used Tobacco 06/13/24 13:12 e-Cigarette/Vaping Use Never Used 06/13/24 13:12 PHQ-9: PHQ-9 Score PHQ-9: Total score 7 06/13/24 13:41 Depression Screening Interpretation: Negative Thrive Assessment: Date of Thrive Assessment Date Thrive assessed 06/13/24 06/13/24 13:12 Currently or been in a relationship where the following occur: No concerns reported Const Other: Alert oriented x3, no acute cardiorespiratory distress Neck Other: Supple, no lymphadenopathy, thyroid nonpalpable Resp Effort & Inspection: normal respiratory effort and able to speak in complete sentences Auscultation: clear to auscultation bilaterally Cardio Other: S1-S2 present regular rate and rhythm GI Palpation (GI): Soft to palpation, nontender, no guarding and Splenomegaly present Other: Goes to her own OBGYN at [facility] for her routine Pap and pelvic exam General: Yes no CVA tenderness Back/Spine/Pelvis Back: no CVA tenderness and No back tenderness Skin Other: Hyperpigmented patches noted on anterior aspect of both lower extremities, nontender to palpation, not warm to touch General skin exam: no rashes or lesions noted Neuro Cognition (Neuro): normal cognition Gait exam (Neuro): Normal gait present Extrem General: Yes full ROM, Yes no joint enlargement, Yes no clubbing, cyanosis or ed colleen, Yes no pedal edema, Yes no calf tenderness and Yes normal gait Psych Appearance: grossly normal and well kempt Mental Status: mental status grossly normal Speech and movement: Normal speech and movement present Affect: normal affect Coding Level of Care Code Est Pt Level 4 (59185) Diagnoses Iron deficiency anemia due to chronic blood loss D50.0 Iron deficiency anemia type: chronic blood loss Easy bruisability R23.3 Anxiety with flying F40.243 Additional Codes PHQ-9 - 22142 - PHQ-9 Billing: Yes ([id number]) MAHAMED-7 Assessment Billing - MAHAMED-7 Assessment Tool: MAHAMED-7 Assessment 41918 ([id number]) Assessment & Plan Assessment & Plan (1) Iron deficiency anemia: Code(s): D50.9 - Iron deficiency anemia, unspecified Category: Medical Qualifiers: Iron deficiency anemia type: chronic blood loss Qualified Code(s): D50.0 - Iron deficiency anemia secondary to blood loss (chronic) (2) Easy bruisability: Code(s): R23.3 - Spontaneous ecchymoses Category: Medical (3) Anxiety with flying: Code(s): F40.243 - Fear of flying Category: Medical Plan Labs ordered to check comprehensive metabolic panel, CBC with differential, partial thromboplastin time and prothrombin time, iron profile, TSH with reflex free T4. Prescription also sent for alprazolam 0.25 mg per tablet to take only as needed for acute anxiety attacks her, and or at least an hour before flying. 5 tablets prescribed with no refill Orders: Orders Comprehensive [employer]. Panel Fast 06/14/24 D50.0 - Iron deficiency anemia secondary to blood loss (chronic), R23.3 - Spontaneous ecchymoses Complete Blood Count Auto Diff 06/14/24 D50.0 - Iron deficiency anemia secondary to blood loss (chronic), R23.3 - Spontaneous ecchymoses Partial Thromboplastin Time 06/14/24 D50.0 - Iron deficiency anemia secondary to blood loss (chronic), R23.3 - Spontaneous ecchymoses Prothrombin Time INR 06/14/24 D50.0 - Iron deficiency anemia secondary to blood loss (chronic), R23.3 - Spontaneous ecchymoses IRON PROFILE 06/14/24 D50.0 - Iron deficiency anemia secondary to blood loss (chronic), R23.3 - Spontaneous ecchymoses TSH reflex Free T4 06/14/24 D50.0 - Iron deficiency anemia secondary to blood loss (chronic), R23.3 - Spontaneous ecchymoses Medications: Refilled alprazolam 0.25 mg PO .1 hour before flying PRN 5 tabs 0RF anxiety F40.243 - Fear of flying
--- OUTSIDE RECORDS SUMMARY | 2024-06-13 15:36 | XMS_ITS | Clinical Summary ---
Author Organization [facility] Address [address] [place] [id number] Phone Care Team Providers Care Adjunct Political Science Instructor Name Role Phone Unavailable Primary Care Provider Unavailabl e Immunizations Immunization Administration Dates Next Due DTP 10/03/1990, 8,1986,1986,1986 Hep B, ped/adol 12/25/1999,01/07/1999,07/05/1998 Hib (HbOC) 12/12/1987 MMR 12/30/1989,08/09/1987 OPV 05/02/1992, 8,1986,1986 Td (adult) (Teniva), 5 Lf t etanus toxoid, PF, adsorbed 07/05/1998 Social History Tobacco Use Types Packs/Day Years Used Date Smoking Tobacco: Never Assessed Comments Unknown Sex and Gender Information Value Date Recorded Sex Assigned at Not on file Legal Sex Female 4:41 PM EDT Gender Identity Not on file Sexual Orientation Not on file Plan of Treatment Health Maintenance Due Date Last Done Comments DTaP,Tdap,and Td Vaccines (6 - Tdap) 07/06/1998 07/05/1998, 10/03/1990, 12/12/1987, Additional history exists Varicella Vaccines (1 of 2 - 13+ 2-dose series) 1999 Influenza Vaccines (#1) 2023 COVID-19 Vaccine (1 - 2023- season) 2023 HIB Vaccines Completed 12/12/1987 MMR Vaccines Completed 12/30/1989, 08/09/1987 IPV Vaccines Completed 05/02/1992, 11/1987, 1986, Additional history exists Hepatitis B Vaccines Completed 12/25/1999, 01/07/1999, 07/05/1998 HPV Vaccines Aged Out No longer eligi ble based on patient's age to complete this topic Hepatitis A Vaccines Aged Out No long er eligible based on patient's age to complete this topic Men B Vaccine Aged Out No longer elig ible based on patient's age to complete this topic Meningococcal Vaccine Aged Out No nette darius eligible based on patient's age to complete this topic Pneumococcal Vaccine Aged Out No long er eligible based on patient's age to complete this topic
--- OUTSIDE RECORDS SUMMARY | 2024-06-13 15:36 | XMS_ITS | Clinical Summary ---
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 Family History Medical History Relation Name Comments Leukemia Brother CML Cancer Maternal Aunt BREAST Cancer Maternal Grandmother UTERINE Relation Name Status Comments Brother Maternal Aunt Maternal Grandmother Social History Tobacco Use Types Packs/Day Years Used Date Smoking Tobacco: Never Smokeless Tobacco: Never Alcohol Use Standard Drinks/Week Comments Yes 0 (1 standard drink = 0.6 oz pur e alcohol) Sex and Gender Information Value Date Recorded Sex Assigned at Not on file Gender Identity Not on file Sexual Orientation Not on file Job Start Date Occupation Industry Not on file Not on file Not on file Last Filed Vital Signs Vital Sign Reading Time Taken Comments Blood Pressure 118/68 12/28/2023 9:38 AM EDT Pulse 83 12/28/2023 9:38 AM EDT Temperature 36.3 ??C (97.3 ??F) 12/28/2023 9:38 AM ED T Respiratory Rate - - Oxygen Saturation 100% 12/28/2023 9:38 AM EDT Inhaled Oxygen Concentration - - Weight 88.6 kg (195 lb 6.4 oz) 12/28/2023 9:38 A M EDT Height 162.6 cm (5' 4 ) 12/28/2023 9:38 AM EDT Body Mass Index 33.54 12/28/2023 9:38 AM EDT Plan of Treatment Health Maintenance Due Date Last Done Comments Hepatitis C Screening 1986 COVID-19 Vaccine (#1) 1986 Depression Screening 1998 DTap / Tdap / Td (6 - Tdap) 07/06/1998 04/0 05/1998, 10/03/1990, 12/12/1987, Additional history exists BMI Counseling 2004 Preventative Health Evaluation 2004 Cervical Cancer Screening (Pap Smear) 2007 Influenza Vaccine (#1) 2023 02/17/2021 Hepatitis B Vaccines Completed 12/25/1999, 01/07/1999, 07/05/1998 Pneumococcal Vaccine Aged Out No long er eligible based on patient's age to complete this topic RSV Ped < 20 months Aged Out No longe r eligible based on patient's age to complete this topic Care Teams Theatrical Scenic Designer Relationship Specialty Start Date End Date Daisha Ni MD [address] [place] [address] PCP - General Internal Medicine 07/26/23
== END 2024-06-13 13:42 | disposition home or self-care (01) ==
LOC: HO.HMCC 12:59
PROVIDERS: PCP Internal Medicine; Visit Provider Internal Medicine
DX: D50.0 Iron deficiency anemia secondary to blood loss (chronic) (principal); R23.3 Spontaneous ecchymoses; F40.243 Fear of flying

== ENCOUNTER → 2024-06-13 12:58 | Outpatient (BNVA) | payer OTHER, MEDICAID, SELFPAY | PROVIDERS: PCP Internal Medicine; Visit Provider Internal Medicine | DX: R23.3 Spontaneous ecchymoses (principal); D50.0 Iron deficiency anemia secondary to blood loss (chronic); F40.243 Fear of flying | CPT/HCPCS: 96127 ==

== ENCOUNTER 2024-06-14 10:32 | Outpatient (REF) | payer OTHER, MEDICAID, SELFPAY ==
--- OUTSIDE RECORDS SUMMARY | 2024-06-14 12:09 | XMS_ITS | Clinical Summary ---
Author Organization [facility] Address [address] [place] [address] Phone Care Team Providers Care Business Resiliency Manager Name Role Phone Unavailable Primary Care Provider [...]
--- OUTSIDE RECORDS SUMMARY | 2024-06-14 12:09 | XMS_ITS | Clinical Summary ---
Author Organization [facility] Address [address] [place] [address] Care Team Providers Care Compensation/Benefits Specialist Name Role Phone Daisha Ni MD Primary Care Provider [phone] [phone] Allergies Active Allergy Reactions Criticality Noted Date [...] age to complete this topic Care Teams Compensation/Benefits Specialist Relationship Specialty Start Date End Date Daisha Ni MD [address] [place] [address] PCP - General Internal Medicine 07/26/23
--- OUTSIDE RECORDS SUMMARY | 2024-06-14 12:09 | XMS_ITS | Clinical Summary ---
Author Organization [facility] Address [address] [place] [address] Phone Care Team Providers Care Metal Fitter Name Role Phone Daisha Ni MD Primary Care Provider Allergies Active Allergy Reactions Criticality Noted Date Comments Shellfish Containing Products 2024 Medications predniSONE (DELTASONE) 20 mg tablet Take 2 tablets (40 mg total) by mouth 1 (one) time each day for 4 days. 8 tablet 06/01/2024 06/06/19 25 Encounters Date Type Department Care Team Description 06/01/2024 1:24 PM EST - 06/01/2024 4:56 PM EST Emergency [facility] Emergency [address] [place] [address] Anaphylaxis, initial encounter (Primary Dx) Discharge Disposition: Home or Self Care from Last 3 Months Surgical History Surgery Date Site/Laterality Comments SECTION PROCEDURE: SECTION TUBAL LIGATION PROCEDURE:TUBAL LIGATION Medical History Medical History Date Comments Anemia DX:Anemia Family History Medical History Relation Name Comments Leukemia Brother CML Cancer Maternal Grandmother UTERINE Cancer Mother's Sister BREAST Relation Name Status Comments Brother Maternal Grandmother Mother's Sister Social History Tobacco Use Types Packs/Day Years Used Date Smoking Tobacco: Never Smokeless Tobacco: Never Alcohol Use Standard Drinks/Week Comments Yes 0 (1 standard drink = 0.6 oz pur e alcohol) Comments Unknown Sex and Gender Information Value Date Recorded Sex Assigned at Female 06/01/2024 1:45 PM EST Legal Sex Female 10:25 AM EST Gender Identity Female 06/01/2024 1:45 PM EST Sexual Orientation Straight 06/01/2024 1: 45 PM EST Obstetrics History Last Filed Vital Signs Vital Sign Reading Time Taken Comments Blood Pressure 140/95 06/01/2024 1:56 PM EST Pulse 89 06/01/2024 1:56 PM EST Temperature 37.1 ??C (98.8 ??F) 06/01/2024 1:56 PM ES T Respiratory Rate 107 06/01/2024 1:56 PM EST Oxygen Saturation 100% 06/01/2024 1:56 PM EST Inhaled Oxygen Concentration - - Weight 88.6 kg (195 lb 6.4 oz) 12/28/2023 9:38 A M EDT Height 162.6 cm (5' 4 ) 12/28/2023 9:38 AM EDT Body Mass Index 33.54 12/28/2023 9:38 AM EDT Plan of Treatment Health Maintenance Due Date Last Done Comments Cervical Cancer Screening: Pap Smear 2007 Depression Screening 03/03/2022 HIV Screening 03/03/2022 Hepatitis C Screening 03/03/2022 Social Influencers of Health Screening 03/03/2022 COVID-19 Vaccine ( season) 2023 01/09/2021, 12/19/2020 Influenza Vaccine (#1) 2023 02/17/2021, 2016 DTaP,Tdap,and Td Vaccines (8 - Td or Tdap) 07/16/2027 07/15/2017, 07/05/1998, 10/03/1990, Additional history exists HIB Vaccines Completed 12/12/1987 MMR Vaccines Completed 12/30/1989, 08/09/1987 IPV Vaccines Completed 05/02/1992, 11/1987, 1986, Additional history exists Hepatitis B Vaccines Completed 12/25/1999, 01/07/1999, 07/05/1998 HPV Vaccines Aged Out No longer eligi ble based on patient's age to complete this topic Hepatitis A Vaccines Aged Out No long er eligible based on patient's age to complete this topic Meningococcal ACWY Vaccine Aged Out N o longer eligible based on patient's age to complete this topic Meningococcal B Vacine Aged Out No lo nger eligible based on patient's age to complete this topic Pneumococcal Vaccine: Pediatrics (0 to 5 Years) and At-Risk Patients (6 to 64 Years) Aged Out No longer eligible based on patient's age to complete this topic RSV Immunization Patients Under 20 months Aged Out No longer eligible based on patient's age to complete this topic Varicella Vaccines Aged Out No longer eligible based on patient's age to complete this topic Procedures Procedure Name Priority Date/Time Associated Diagnosis Comments [place] CRITICAL CARE 30-74 MINUTES Routine 06/01/2024 1:21 PM EST from Last 3 Months Results * [place] CRITICAL CARE 30-74 MINUTES (06/01/2024 1:21 PM EST) Narrative Reynold Klein MD - 06/01/2024 1:21 PM EST LOR Schroeder ? 06/01/2024 ??3:52 PM Critical Care Performed by: LOR Schroeder Authorized by: Reynold Klein MD ?? Critical care provider statement: ??Critical care time (minutes): ??45 (45) ??Critical care was necessary to treat or prevent imminent or life-threatening deterioration of the following conditions: ??Respiratory failure ??Critical care was time spent personally by me on the following activities: ??Examination of patient, re-evaluation of patient's condition and pulse oximetry ??I assumed direction of critical care for this patient from another provider in my specialty: no ?? Comments: ?? Patient with a history of seafood allergy complained of difficulty breathing difficulty swallowing at a restaurant today. ??She received epinephrine IM prehospital. ??She was immediately brought into a room I evaluated her we ordered multiple medications IV and I reevaluated her multiple times us Reynold Klein MD IN CLINIC/BEDSIDE ORDERAB LES Final Result from Last 3 Months Insurance [place] Care Teams Metal Fitter Relationship Specialty Start Date End Date Daisha Ni MD [address] [place] [address] PCP - General Internal Medicine 07/16/20
--- OUTSIDE RECORDS SUMMARY | 2024-06-14 12:09 | XMS_ITS | Encounter Summary ---
Author Organization [facility] Address [address] [place] [address] Care Team Providers Care Dietary Worker Name Role Phone Daisha Ni MD Primary Care Provider [phone] Reason for Visit * Reason Comments Allergic Reaction Per ems coming was r ed gina having lunch- ate calamari instantly felt itchy all over, sob, and trouble swallowing. Has known shellfish allergy. Encounter Details Date Type Department Care Team (Late st Contact Info) Description 06/01/2024 1:24 PM EST - 06/01/2024 4:56 PM EST Emergency [facility] Emergency [address] [place] [id number] Anaphylaxis, initial encounter (Primary Dx) Discharge Disposition: Home or Self Care Social History Tobacco Use Types Packs/Day Years [...] Orientation Straight 06/01/2024 1: 45 PM EST documented as of this encounter Last Filed Vital Signs Vital Sign Reading Time Taken Comments Blood Pressure 140/95 06/01/2024 1:56 PM EST Pulse 89 06/01/2024 1:56 PM EST Temperature 37.1 ??C (98.8 ??F) 06/01/2024 1:56 PM ES T Respiratory Rate 107 06/01/2024 1:56 PM EST Oxygen Saturation 100% 06/01/2024 1:56 PM EST Inhaled Oxygen Concentration - - Weight - - Height - - Body Mass Index - - documented in this encounter Discharge Instructions * Discharge Instructions* LOR Schroeder - 06/01/2024 3:36 PM EST Take prednisone once a day for 4 more days starting tomorrow. Use [id number] Benadryl if the rash returns. Follow-up with your primary care doctor. * Attachments The following attachments cannot be sent through Care Everywhere. * Anaphylactic Reaction (Ecuadorean) documented in this encounter Medications at Time of Discharge predniSONE (DELTASONE) 20 mg tablet Take 2 tablets (40 mg total) by mouth 1 (one) time each day for 4 days. 8 tablet 06/01/2024 06/05/2024 documented as of this encounter Ordered Prescriptions Prescription Sig Dispense Quantity Refills Last Filled Start Date End Date predniSONE (DELTASONE) 20 mg tablet Take 2 tablets (40 mg total) by mouth 1 (one) time each day for 4 days. 8 tablet 06/01/2024 documented in this encounter Discharge Disposition Disposition Code Departure Means Destination Comment s Home or Self Care documented in this encounter Progress Notes * LOR Schroeder - 06/01/2024 1:21 PM ESTAssociated Order(s): Critical Care Emergency Medicine Note Patient Name: Nancy Bermudez Initial Evaluation: 06/01/2024 : 1985 Patient's PCP: Daisha Ni MD Emergency Physician: LOR Schroeder History of Present Illness Chief Complaint: Chief Complaint Patient presents with Allergic Reaction Per ems coming was red gina having lunch- ate calamari instantly felt itchy all over, sob, and trouble swallowing. Has known shellfish allergy. HPI: 39-year-old female with a history of shellfish allergy which was diagnosed just 3 months ago after 2 or 3 episodes of allergic reaction. She was at a restaurant today she ate calamari and soon after she began to experience itchy rash she felt short of breath and had difficulty swallowing. She called 911 and was transported to hospital. She received epinephrine IM prehospital. Patient states that her symptoms have improved since then. She denies any chest pain or shortness of breath. ROS: I have performed a ROS with the pertinent positives and negatives documented in the history ofpresent illness. Previous History Past Medical History: Diagnosis Date Anemia DX:Anemia Past Surgical History: Procedure Laterality Date SECTION PROCEDURE: SECTION TUBAL LIGATION PROCEDURE:TUBAL LIGATION Social History Tobacco Use Smoking status: Never Smokeless tobacco: Never Substance Use Topics Alcohol use: Yes Drug use: Never Family History Problem Relation Name Age of Onset Leukemia Brother CML Cancer Mother's Sister BREAST Cancer Maternal Grandmother UTERINE is allergic to shellfish containing products. No current facility-administered medications on file prior to encounter. No current outpatient medications on file prior to encounter. Physical Exam ED Triage Vitals [06/01/24 1345] Temp Heart Rate Resp BP -- 103 -- -- SpO2 Temp src Heart Rate Source Patient Position 100 % -- -- -- BP Location FiO2 (%) -- -- General: Well-appearing, well nourished, in no acute distress HEENT: PERRL, EOMI, external ears and nose appear unremarkable, airway is patent Neck: Supple, full range of motion no stridor Chest: Clear to auscultation; no evidence of respiratory distress Circulatory: RRR, extremities well perfused Abdomen: Non-distended, Non-Tender Extremities: Normal ROM, No edema Skin: Warm and dry Neuro: Alert and oriented, no focal deficits Results Labs Reviewed - No data to display Abnormal Labs Reviewed - No data to display No orders to display I have discussed the incidental/abnormal imaging and/or lab abnormalities with the patient and haveinstructed them the need for further evaluation and workup with their primary care doctor. I have provided the patient with a paper copy of the abnormality. The laboratory results, imaging results and other diagnostic exam results were reviewed in the EMR. EKG Interpretation Critical Care Time None ? Medical Decision Making Medications diphenhydrAMINE (BENADRYL) injection 25 mg (has no administration in time range) famotidine (PF) (PEPCID) injection 20 mg (has no administration in time range) sodium chloride 0.9 % bolus 1,000 mL (has no administration in time range) methylPREDNISolone sodium succ (SOLU-Medrol) injection 125 mg (125 mg intravenous Given 06/01/24 1355) Patient was evaluated. She received epinephrine IM prehospital. She is tachycardic but no hypoxia. IV normal saline 1 L bolus Solu-Medrol Benadryl and Pepcid IV. Patient will be closely observed. After 2 hours patient is resting comfortably no stridor no wheezing no angioedema. She is still complaining of a knot sensation in the back of her throat but oropharynx is grossly normal and there is no stridor. Patient will be discharged with prednisone. Clinical Impressions as of 06/01/24 1537 Anaphylaxis, initial encounter Procedures Critical Care Performed by: LOR Schroeder Authorized by: Reynold Klein MD Critical care provider statement: Critical care time (minutes): 45 (45) Critical care was necessary to treat or prevent imminent or life-threatening deterioration of the following conditions: Respiratory failure Critical care was time spent personally by me on the following activities: Examination of patient, re-evaluation of patient's condition and pulse oximetry I assumed direction of critical care for this patient from another provider in my specialty: no Comments: Patient with a history of seafood allergy complained of difficulty breathing difficulty swallowing at a restaurant today. She received epinephrine IM prehospital. She was immediately brought into a room I evaluated her we ordered multiple medications IV and I reevaluated her multiple times Diagnosis No diagnosis found. Anaphylaxis Disposition Data Unavailable Discharge ED Prescriptions None Physician Attestation LOR Schroeder 06/01/24 1359 LOR Schroeder 06/01/24 1552 Cosigned by Reynold Klein MD at 06/02/2024 2:24 PM EST documented in this encounter Plan of Treatment Not on file documented as of this encounter Procedures Procedure Name Priority Date/Time Associated Diagnosis Comments [place] CRITICAL CARE 30-74 MINUTES Routine 06/01/2024 1:21 PM EST documented in this encounter Results * GA CRITICAL CARE 30-74 MINUTES (06/01/2024 1:21 PM EST) Reynold Landaverde MD - 06/01/2024 1:21 PM EST LOR [...] MD IN CLINIC/BEDSIDE ORDERAB LES Final Result documented in this encounter Visit Diagnoses Diagnosis Anaphylaxis, initial encounter- Primary documented in this encounter Administered Medications Inactive Administered Medications - up to 3 most recent administrations Medication Order MAR Action Action Date Dose Rate Site diphenhydrAMINE (BENADRYL) injection 25 mg 25 mg, intravenous, Once, On Karen 06/01/24 at 1347, For 1 dose Given 06/01/2024 1:56 PM EST 25 mg famotidine (PF) (PEPCID) injection 20 mg 20 mg, intravenous, Administer over 2 Minutes, Once, On Karen 06/01/24 at 1347, For 1 dose Given 06/01/2024 1:56 PM EST 20 mg methylPREDNISolone sodium succ (SOLU-Medrol) injection 125 mg 125 mg, intravenous, Once, On Karen 06/01/24 at 1347, For 1 dose, Reconstitute each 125 mg vial with 2 mL sterile water for injection to a concentration of 62.5 mg/mL. Given 06/01/2024 1:55 PM EST 125 mg sodium chloride 0.9 % bolus 1,000 mL 1,000 mL, intravenous, at 1,000 mL/hr, Administer over 1 Hours, Once, On Karen 06/01/24 at 1347, For 1 dose New Bag 06/01/2024 1:56 PM EST 1,000 mL 1000 mL/hr documented in this encounter Active and Recently Administered Medications Times are shown in EST. Scheduled Medication Order 05/30/2024 05/31/2024 06/01/2024 diphenhydrAMINE (BENADRYL) injection 25 mg (COMPLETED) 25 mg, intravenous, Once, On Karen 06/01/24 at 1347, For 1 dose 1356 (Given - Provid er: Pablito Hamilton RN) famotidine (PF) (PEPCID) injection 20 mg (COMPLETED) 20 mg, intravenous, Administer over 2 Minutes, Once, On Karen 06/01/24 at 1347, For 1 dose 1356 (Given - Provid er: Pablito Hamilton RN) methylPREDNISolone sodium succ (SOLU-Medrol) injection 125 mg (COMPLETED) 125 mg, intravenous, Once, On Karen 06/01/24 at 1347, For 1 dose, Reconstitute each 125 mg vial with 2 mL sterile water for injection to a concentration of 62.5 mg/mL. 1355 (Given - Provid er: Pablito Hamilton RN) sodium chloride 0.9 % bolus 1,000 mL (COMPLETED) 1,000 mL, intravenous, at 1,000 mL/hr, Administer over 1 Hours, Once, On Karen 06/01/24 at 1347, For 1 dose 1356 (New Bag - Prov ider: Pablito Hamilton RN)[id number] (Stopped - Provider: Pablito Hamilton RN) documented in this encounter Care Teams Dietary Worker Relationship Specialty Start Date End Date Daisha Ni MD [address] [place] [address] PCP - General Internal Medicine 07/16/20 documented as of this encounter
[2024-06-14 13:46] LABS: MANUAL DIFF FLAG NO
[2024-06-14 13:53] LABS: Basophils Percent Auto 0.5 % (0-2); Eosinophils Absolute Auto 0.1 X10*3/uL (0.0-0.4); Eosinophils Percent Auto 1.3 % (0-4); Hematocrit 39.6 % (37.0-47.0); Hemoglobin 12.8 g/dl (12.0-16.0); Imm Gran Abs Auto 0.04 X10*3/uL (0.00-0.03); Imm Gran Pct Auto 0.5 % (0.0-0.4); Lymphocytes Percent Auto 34.7 % (20-40); Mean Corpuscular HGB Conc 32.3 g/dl (31.0-35.0); Mean Corpuscular Hemoglobin 26.6 pg (27.0-33.0); Mean Corpuscular Volume 82.3 fL (80.0-98.0); Monocytes Absolute Auto 0.5 X10*3/uL (0.1-1.2); Monocytes Percent Auto 6.1 % (2-11); Neutrophils Percent Auto 56.9 % (45-73); Platelet Count 336 X10*3/uL (160-400); Red Blood Count 4.81 X10*6/uL (4.20-5.50); Red Cell Distribution Width 13.6 % (11.0-16.0); White Blood Count 8.7 X10*3/uL (4.8-10.8)
[2024-06-14 13:59] LABS: Prothrombin Time 11.8 SEC (10.9-12.4)
[2024-06-14 14:02] LABS: Partial Thromboplastin Time 29.4 SEC (26.0-36.8)
[2024-06-14 14:09] LABS: Alanine Aminotransferase 23 U/L (0-31); Albumin Level 4.1 g/dL (3.5-5.0); Alkaline Phosphatase 55 U/L (39-117); Anion Gap 10 (12-20); Aspartate Amino Transferase 21 U/L (5-31); Bilirubin Total 0.7 mg/dL (0.0-1.0); Blood Urea Nitrogen 11 mg/dL (9-16); Calcium 8.9 mg/dL (8.4-10.2); Carbon Dioxide 25 mmol/L (22-29); Chloride 108 mmol/L (96-108); Estimated Glomerular Filt Rate > 60; Glucose Fasting 86 mg/dL (60-99); Iron 86 mcg/dL (30-160); Percent Iron Saturation 28 % (15-50); Potassium 3.8 mmol/L (3.3-5.1); Sodium 139 mmol/L (135-145); Total Iron Binding Capacity 312 mcg/dL (228-428); Total Protein 7.4 g/dL (6.5-8.0); Unsaturated Iron Binding 226 ug/dL
[2024-06-14 14:27] LABS: TSH reflex Free T4 1.21 uIU/mL (0.32-4.0)
== END 2024-06-14 10:33 | disposition home or self-care (01) ==
LOC: HO.HMGCLDS 10:32
PROVIDERS: PCP Internal Medicine; Visit Provider Internal Medicine
DX: R23.3 Spontaneous ecchymoses (principal); D50.0 Iron deficiency anemia secondary to blood loss (chronic)
CPT/HCPCS: 36415; 80053; 83540; 84443; 85025; 85610; 85730

== ENCOUNTER 2024-06-30 09:53 | Outpatient (REF) | payer OTHER, MEDICAID, SELFPAY ==
[2024-06-30 13:48] LABS: Rheumatoid Factor 14.1 IU/mL (<15.0)
[2024-06-30 14:21] LABS: Vitamin D 25-OH Total 44.2 ng/mL (>30)
[2024-06-30 14:23] LABS: Folate 8.6 ng/mL (> or = 4.0); Vitamin B12 277 pg/mL (200-900)
[2024-06-30 14:38] LABS: Erythrocyte Sedimentation Rate 10 MM/HR (0-20)
[2024-07-01 03:34] LABS: HBS Num1 70.32 mIU/mL (0-7.99); HBc Num1 0.18 S/CO (0.00-0.79); HBsAGNum1 0.23 S/CO (0.00-0.99); Hepatitis B Core Antibody Nonreactive (Nonreactive); Hepatitis B Surface Antigen Negative (Negative); ~HepC Num1 0.15 S/CO (0.00-0.79); ~Hepatitis B Surface Antibody REACTIVE (Nonreactive); ~Hepatitis C Antibody Nonreactive (Nonreactive)
[2024-07-01 22:34] LABS: CRP High Sensitivity 3.3 mg/L
[2024-07-03 12:27] LABS: Complement C3 146 mg/dL (83-193)
[2024-07-05 08:48] LABS: Myeloperoxidase Antibody <1.0 AI; Proteinase 3 PR3 Antibodies <1.0 AI
[2024-07-05 11:53] LABS: ANA Pattern 3 Nuclear, Nucleolar; Anti Nuclear Antibody Screen POSITIVE (NEGATIVE)
== END 2024-06-30 09:54 | disposition home or self-care (01) ==
LOC: HO.HMGCLDS 09:53
PROVIDERS: PCP Internal Medicine; Visit Provider Internal Medicine
DX: R23.3 Spontaneous ecchymoses (principal); M25.50 Pain in unspecified joint; M79.10 Myalgia, unspecified site; R53.82 Chronic fatigue, unspecified
CPT/HCPCS: 36415; 82306; 82550; 82607; 82746; 85652; 86021; 86038; 86039; 86141; 86160; 86431; 86704; 86706; 86803; 87340

== ENCOUNTER 2024-07-07 08:00 | Outpatient (AMB) | payer OTHER, MEDICAID, SELFPAY ==
--- OUTSIDE RECORDS SUMMARY | 2024-07-07 08:09 | XMS_ITS | Clinical Summary ---
Author Organization [facility] Address [address] [place] [address] Phone Care Team Providers Care Eye Dropper Assembler Name Role Phone Daisha Ni MD Primary Care Provider Allergies Active Allergy Reactions Criticality Noted Date Comments Shellfish Containing Products 2024 Encounters Date Type Department Care Team Description 06/01/2024 1:24 PM EST - 06/01/2024 4:56 PM EST Emergency [facility] Emergency [address] [place] [address] Anaphylaxis, initial encounter (Primary Dx) [...] Procedure Name Priority Date/Time Associated Diagnosis Comments [place] CRITICAL CARE 30-74 MINUTES Routine 06/01/2024 1:21 PM EST from Last 3 Months Results * [place] CRITICAL CARE 30-74 MINUTES (06/01/2024 1:21 PM [...] [place] Care Teams Eye Dropper Assembler Relationship Specialty Start Date End Date Daisha Ni MD [address] [place] [address] PCP - General Internal Medicine 07/16/20
--- OUTSIDE RECORDS SUMMARY | 2024-07-07 08:09 | XMS_ITS | Clinical Summary ---
Author Organization [facility] Address [address] [place] [address] Phone Care Team Providers Care Pie Bottomer Name Role Phone Unavailable Primary Care Provider [...]
--- OUTSIDE RECORDS SUMMARY | 2024-07-07 08:10 | XMS_ITS | Clinical Summary ---
Author Organization [facility] Address [address] [place] [address] Care Team Providers Care Video Game Producer Name Role Phone Daisha Ni MD Primary Care Provider [phone] Allergies Active Allergy Reactions Criticality Noted Date [...] age to complete this topic Care Teams Video Game Producer Relationship Specialty Start Date End Date Daisha Ni MD [address] [place] [address] PCP - General Internal Medicine 07/26/23
--- NOTE | 2024-07-07 08:13 | MHC.PC.OV ---
Intake Visit Reasons: f/u on recent lab results concerns I phone Allergies shrimp Adverse Reaction (Uncoded 07/07/24 08:39) hives Medication List - Last Reconciled 07/07/24 by Daisha Ni MD acetaminophen 1,000 mg (2 x 500 mg) PO Q6H PRN alprazolam 0.25 mg PO .1 hour before flying PRN ascorbic acid (vitamin C) 500 mg PO DAILY ferrous sulfate 325 mg PO BID norgestimate-ethinyl estradiol 0.25-0.035 mg 1 tab PO DAILY Tobacco use date assessed: 06/13/24 Dental Screening Dental Screen Date: 06/13/24 HPI f/u on recent lab results concerns I phone HPI Details 39-year-old lady here today to discuss results of recent labs. She has been complaining of easy bruisability, generalized joint pains, fatigue issues, headaches, which has been present now for the last several weeks. She has been taking soqc-ueu-[id number] NSAIDs which afforded only temporary relief. Fasting labs showed normal CBC , electrolytes, renal function, liver function test, thyroid stimulating hormone, vitamin-D, vitamin B12 and folic acid levels. Her total CK slightly elevated and her CRP level, and EMMA levels were also elevated. [facility] Medical History Family history of lupus erythematosus Positive EMMA (antinuclear antibody) Hx of hemolytic anemia Easy bruisability Delayed hemolytic transfusion reaction Dyslipidemia Menorrhagia History of food anaphylaxis Vitamin D deficiency Iron deficiency anemia Essential hypertension History of anemia Anxiety with flying History of COVID-19 Surgical History No pertinent past surgical history Family History Maternal Aunt Breast cancer Social History Housing: House Alcohol intake: former Patient Tobacco Use Status: Never used Tobacco e-Cigarette/Vaping Use: Never Used service: No Current occupational status: employed 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 Kristofer Milan, Adriana Lu, Josh Chase and colleagues, with an educational ela from [employer]. Review of Systems Const Reports as per HPI, Reports fatigue and Denies fever(s) Eyes Denies blurry vision ENT Denies vertigo, Denies dizziness, Denies otalgia, Denies sore throat and Denies throat swelling Card Denies chest pain and Denies dyspnea Resp Denies chest congestion, Denies cough and Denies dyspnea GI Denies abdominal pain, Reports constipation and Denies vomiting Reports no additional complaints Musc Reports as per HPI Skin/Breast Reports unusual bruising Neuro Denies confusion, Denies vertigo, Denies dizziness and Denies paresthesias Psych Denies confusion Endo Reports fatigue Jamal/Lymph Reports no additional complaints Aller/Immun Denies throat swelling and Reports other (History anaphylactic reaction to shrimp) Physical exam (Primary Care) Tobacco/Smoking Status: Tobacco use Status Tobacco use date assessed 06/13/24 07/07/24 08:14 Patient Tobacco Use Status Never used Tobacco 07/07/24 08:14 e-Cigarette/Vaping Use Never Used 07/07/24 08:14 Thrive Assessment: Date of Thrive Assessment Date Thrive assessed 06/13/24 07/07/24 08:14 Const General: No confusion Orientation/consciousness: No confusion Neuro General: No confusion Telehealth Telehealth Telehealth Platform: [facility] Location of provider rendering services: practice address Location of patient: address on file Patient Identification confirmed using: Name, : Yes Telehealth method: video Patient verbally consented to treatment: Yes Patient verbally consented to billing insurance company: Yes Patient informed of any privacy concerns related to visit: Yes Minutes spent on Phone/Video with Pt.: 20 Results Reviewed Results Reviewed: Name: Nancy Bermudez Age/Sex: 39/F : 1985 Unit#: [id number] Attend Dr: Daisha Ni MD Re06/14/24 Status: DEP REF Location: [facility] Disch: SPEC : [id number] BLAINE: 06/14/24-1034 STATUS: COMP REQ : [id number] RECD: 06/14/24-[address]: Daisha Ni MD COMP: 06/14/24 ENTERED: 06/14/[address] [facility] [address]: ORDERED: CBC Auto Diff Test Result Flag Reference WBC 8.7 4.8-10.8 X10*3/uL RBC 4.81 4.20-5.50 X10*6/uL HGB 12.8 12.0-16.0 g/dl HCT 39.6 37.0-47.0 % MCV 82.3 80.0-98.0 fL MCH 26.6 L 27.0-33.0 pg MCHC 32.3 31.0-35.0 g/dl RDW 13.6 11.0-16.0 % PLT 336 160-400 X10*3/uL MPV 11.0 9.4-12.3 fL Neut Pct Auto 56.9 45-73 % ImGran Pct Auto 0.5 H 0.0-0.4 % Lymp Pct Auto 34.7 20-40 % Perry Pct Auto 6.1 2-11 % Eos Pct Auto 1.3 0-4 % Baso Pct Auto 0.5 0-2 % NRBC Pct Auto 0.0 0.0-0.2 /100WBC ANC Neut Abs # 5.0 2.0-8.3 x10*3/uL ImGran Abs Auto 0.04 H 0.00-0.03 X10*3/uL Lymph Abs Auto 3.0 1.2-4.9 X10*3/uL Perry Abs Auto 0.5 0.1-1.2 X10*3/uL Eos Abs Auto 0.1 0.0-0.4 X10*3/uL Baso Abs Auto 0.0 0.0-0.2 X10*3/uL NRBC Abs Auto 0.000 0.0-0.012 X10*3/uL rosa: Nancy Bermudez Age/Sex: 39/F : 1985 Unit#: [id number] Attend Dr: Daisha Ni MD Re06/14/24 Status: DEP REF Location: [facility] Disch: SPEC : [id number] BLAINE: 06/14/24 STATUS: COMP REQ : [id number] RECD: 06/14/24-[address]: Daisha Ni MD COMP: 06/14/24 ENTERED: 06/14/[address]: ORDERED: CMP Fast, IRON PROF, TSH Rflx Test Result Flag Reference Sodium 139 135-145 mmol/L Potassium 3.8 3.3-5.1 mmol/L CL 108 96-108 mmol/L CO2 25 22-29 mmol/L Gap 10 L 12-20 BUN 11 9-16 mg/dL Creat 0.69 0.5-1.4 mg/dL eGFR > 60 Chronic Kidney Disease: Estimated GFR < 60 mL/min/1.73m2 Severe Kidney Disease: Estimated GFR < 15 mL/min/1.73m2 FBS 86 60-99 mg/dL CA 8.9 8.4-10.2 mg/dL Iron 86 30-160 mcg/dL TIBC 312 228-428 mcg/dL Saturation 28 15-50 % UIBC 226 ug/dL Total Bili 0.7 0.0-1.0 mg/dL AST (GOT) 21 5-31 U/L ALT (GPT) 23 0-31 U/L Protein, Total 7.4 6.5-8.0 g/dL Alb 4.1 3.5-5.0 g/dL Alk Phos 55 39-117 U/L TSH 1.21 0.32-4.0 uIU/mL Name: Nancy Bermudez Age/Sex: 39/F : 1985 Unit#: [id number] Attend Dr: Daisha Ni MD Re06/30/24 Status: DEP [facility] Disch: SPEC : [id number] BLAINE: 06/30/24 STATUS: COMP REQ : [id number] RECD: 06/30/24-[address]: Daisha Ni MD COMP: 06/30/24-1347 ENTERED: 06/30/[address]: ORDERED: B12FOL, RF Test Result Flag Reference Vitamin B12 277 200-900 pg/mL NORMAL 200-900 PG/ML INDETERMINATE 160-199 PG/ML DEFICIENT < 160 PG/ML Folate 8.6 > or = 4.0 ng/mL Reference Values: > or = 4.0 ng/mL < 4.0 ng/mL suggests folate deficiency Methotrexate, aminopterin and folinic acid (leucovorin) are chemotherapeutic agents whose molecular structures are similar to folate; therefore, the Parquetry Layer folate assay cannot be used for patients using these drugs. Rheum Factor 14.1 <15.0 IU/mL Name: Nancy Bermudez Age/Sex: 39/F : 1985 Unit#: [id number] Attend Dr: Daisha Ni MD Re06/30/24 Status: DEP [facility] Disch: SPEC : [id number] BLAINE: 06/30/24-1010 STATUS: COMP REQ : [id number] RECD: 06/30/24-[address] [facility] [address]: Daisha Ni MD COMP: 07/05/24-1153 ENTERED: 06/30/24-[address] [facility] [address]: ORDERED: EMMA Reflex Test Result Flag Reference EMMA Screen POSITIVE A NEGATIVE EMMA IFA is a first line screen for detecting the presence of up to approximately 150 autoantibodies in various autoimmune diseases. A positive EMMA IFA result is suggestive of autoimmune disease and reflexes to titer and pattern. Further laboratory testing may be considered if clinically indicated. For additional information, please refer to http://education.[employer]/faq/JTX734 (This link is being provided for informational/ educational purposes only.) EMMA Titer 1:80 H titer A low level EMMA titer may be present in pre-clinical autoimmune diseases and normal individuals. Reference Range <1:40 Negative 1:40-1:80 Low Antibody Level >1:80 Elevated Antibody Level EMMA Pattern A Mitotic, Spindle Fibers Abnormal Flag: A The spindle fibers between the poles are stained in mitotic cells, associated with cone-shaped decoration of the mitotic poles. The pattern is rare in Sjogren's syndrome, systemic lupus erythematosus (SLE), and other connective tissue diseases. AC-25: Spindle Fibers International Consensus on EMMA Patterns (https://doi.org/10.1515/pyng-6922-7882) EMMA Titer 2 1:80 H titer A low level EMMA titer may be present in pre-clinical autoimmune diseases and normal individuals. Reference Range <1:40 Negative 1:40-1:80 Low Antibody Level >1:80 Elevated Antibody Level EMMA Pattern 2 A Mitotic, Intercellular Bridge Abnormal Flag: A Staining of the intercellular bridge that connects daughter cells by the end of cell division, but before cell separation. Pattern is rare in systemic sclerosis, Raynaud's phenomenon, and in some malignancies. AC-27: Intercellular Bridge International Consensus on EMMA Patterns (https://doi.org/10.1515/tcha-0125-5760) EMMA Titer 3 1:80 H titer A low level EMMA titer may be present in pre-clinical autoimmune diseases and normal individuals. Reference Range <1:40 Negative 1:40-1:80 Low Antibody Level >1:80 Elevated Antibody Level EMMA Pattern 3 Nuclear, Nucleolar A Nucleolar pattern is associated with systemic sclerosis (scleroderma), systemic sclerosis/polymyositis overlap and Sjogren's syndrome. AC-8,9,10: Nucleolar International Consensus on EMMA Patterns (https://doi.org/10.1515/ysxh-6856-7476) THIS TEST WAS PERFORMED AT: [facility] [address] [place] [id number] KATHERINE GILMORE MD Coding Level of Care Code Tele Est Pt Level 4 (54078) Diagnoses Easy bruisability R23.3 Generalized joint pain M25.50 Myalgia M79.10 Positive EMMA (antinuclear antibody) R76.8 Family history of lupus erythematosus Z84.0 Assessment & Plan Assessment & Plan (1) Easy bruisability: Code(s): R23.3 - Spontaneous ecchymoses Category: Medical (2) Generalized joint pain: Code(s): M25.50 - Pain in unspecified joint Category: Medical (3) Myalgia: Code(s): M79.10 - Myalgia, unspecified site Category: Medical (4) Positive EMMA (antinuclear antibody): Code(s): R76.8 - Other specified abnormal immunological findings in serum Category: Medical (5) Family history of lupus erythematosus: Code(s): Z84.0 - Family history of diseases of the skin and subcutaneous tissue Category: Medical Plan Lab results discussed with patient, which showed elevated EMMA levels, and CRP, will refer to rheumatology for further evaluation management Orders: Referrals Rheumatology Referral M25.50 - Pain in unspecified joint, M79.10 - Myalgia, unspecified site, R23.3 - Spontaneous ecchymoses, R76.8 - Other specified abnormal immunological findings in serum, Z84.0 - Family history of diseases of the skin and subcutaneous tissue, Z86.2 - Personal history of diseases of the blood and blood-forming organs and certain disorders involving the immune mechanism
== END 2024-07-07 09:42 | disposition home or self-care (01) ==
LOC: HO.HMCC 08:00
PROVIDERS: PCP Internal Medicine; Visit Provider Internal Medicine
DX: R23.3 Spontaneous ecchymoses (principal); M25.50 Pain in unspecified joint; M79.10 Myalgia, unspecified site; R76.8 Other specified abnormal immunological findings in serum; Z84.0 Family history of diseases of the skin and subcutaneous tissue

== ENCOUNTER 2024-07-17 08:06 | Outpatient (AMB) | payer OTHER, MEDICAID, SELFPAY ==
[2024-07-17 08:11] VITALS: BP 122/82; PULSE 74; RESP 15; TEMP 36.7; O2SAT 100; BMI 35.2
--- NOTE | 2024-07-17 08:11 | A.OFFPC_ITS ---
Vital Signs 07/17/24 08:11 Height 5 ft 4 in Weight 205 lb BMI 35.2 BP 122/82 Blood Pressure Location Rt brachial Position Sitting Respiration 15 Pulse 74 Pulse Source Pulse Oximeter Temp 98.1 F Temp Source Oral Pulse Oximetry (%) 100 Oxygen Delivery Method Room Air Intake Visit Reasons: f/u anxiety Intake Note: Pt is here today for a f/u anxiety Allergies shrimp Adverse Reaction (Uncoded 07/17/24 08:43) hives Medication List - Last Reconciled 07/17/24 by Daisha Ni MD acetaminophen 1,000 mg (2 x 500 mg) PO Q6H PRN alprazolam 0.25 mg PO .1 hour before flying PRN ascorbic acid (vitamin C) 500 mg PO DAILY duloxetine 30 mg PO DAILY ferrous sulfate 325 mg PO BID norgestimate-ethinyl estradiol 0.25-0.035 mg 1 tab PO DAILY Tobacco use date assessed: 07/17/24 Dental Screening Dental Screen Date: 07/17/24 Did you have a dental visit in the last 12 months?: Yes Did you have a dental problem in the last 6 months where you did not have access to dental care?: No Was dental information given to patient?: Patient has dentist HPI f/u anxiety HPI Details 39-year-old lady here today complaining of having frequent anxiety attacks about her current medical issues. She has been having polyarthralgia, found to have mildly positive EMMA levels with mild elevation in total CK and CRP level. She has an appointment made with [facility] rheumatology but not until March of this year, has reached out to [facility] in [place] and will be seeing them in October. [facility] Medical History (Updated 07/30/24 @ 12:27 by Daisha Ni MD) Anxiety and depression Family history of lupus erythematosus Positive EMMA (antinuclear antibody) Hx of hemolytic anemia Easy bruisability Delayed hemolytic transfusion reaction Dyslipidemia Menorrhagia History of food anaphylaxis Vitamin D deficiency Iron deficiency anemia Essential hypertension History of anemia Anxiety with flying History of COVID-19 Surgical History No pertinent past surgical history Family History Maternal Aunt Breast cancer Social History Housing: House Alcohol intake: former Patient Tobacco Use Status: Never used Tobacco e-Cigarette/Vaping Use: Never Used service: No Current occupational status: employed 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 1. Little interest or pleasure in doing things: more than half the days 2. Feeling down, depressed, or hopeless: nearly every day 3. Trouble falling or staying asleep, or sleeping too much: nearly every day 4. Feeling tired or having little energy: nearly every day 5. Poor appetite or overeating: more than half the days 6. Feeling bad about yourself - or that you are a failure or have let yourself or your family down: several days 7. Trouble concentrating on things, such as reading the newspaper or watching television: nearly every day 8. Moving or speaking so slowly that other people could have noticed. Or the opposite - being so fidgety or restless that you have been moving around a lot more than usual: not at all 9. Thoughts that you would be better off or of hurting yourself in some way: not at all Total score: 17 Depression Screening Interpretation: Positive Depression Screening Done: Yes 43298 - PHQ-9 Billing: Yes Source: Developed by Drs. Kristofer Milan, Adriana Lu, Josh Chase and colleagues, with an educational ela from [employer]. Thrive Questionnaire Date Thrive assessed: 06/13/24 I am a: Patient What is your living situation today?: I have a steady place to live Within the past 12 months, did the food you bought not last and you didn't have the money to get more?: Never true Within the past 12 months, did you worry whether your food would run out before you got money to buy more?: Never true Do you have trouble paying for medicines?: No Do you have trouble getting transportation to medical appointments?: No Do you have trouble paying your heating and electricity bill?: No Do you have trouble taking care of your child, family member or friend?: No Do you have trouble with day-to-day activities such as bathing, preparing meals, shopping, managing finances, etc.?: No Are you currently unemployed and looking for a job?: No Are you interested in more education?: No Please select the resources that you would like help with: None Currently or been in a relationship where the following occur: No concerns reported THRIVE Score: 0 MAHAMED-7 AMB Questionnaire MAHAMED-7 Date MAHAMED - 7 assessed: 07/17/24 Feeling nervous, anxious, or on edge: 3 = Nearly every day Not being able to stop or control worryin = Nearly every day Worrying too much about different things: 2 = More than half the days Trouble relaxin = More than half the days Being so restless that it is hard to sit still: 1 = Several days Becoming easily annoyed or irritable: 2 = More than half the days Feeling afraid as if something awful might happen: 3 = Nearly every day Total MAHAMED-7 score (0-4 normal; 5-9 mild; 10-14 moderate; 15-21 severe): 16 Source: Developed by Drs. Kristofer Milan, Adriana Lu, Josh Chase and colleagues, with an educational ela from [employer]. MAHAMED-7 Assessment Billing MAHAMED-7 Assessment Tool: MAHAMED-7 Assessment 94094 Review of Systems Const All systems reviewed & are unremarkable except as noted in HPI and below Physical exam (Primary Care) Vital Signs: Last Vital Signs Temp 98.1 F 07/17/24 08:11 Pulse 74 07/17/24 08:11 Resp 15 07/17/24 08:11 BP 122/82 07/17/24 08:11 Pulse Ox 100 07/17/24 08:11 Oxygen Delivery Method Room Air 07/17/24 08:11 BMI result Body Mass Index 35.2 Tobacco/Smoking Status: Tobacco use Status Tobacco use date assessed 07/17/24 07/17/24 08:17 Patient Tobacco Use Status Never used Tobacco 07/17/24 08:17 e-Cigarette/Vaping Use Never Used 07/17/24 08:17 PHQ-9: PHQ-9 Score PHQ-9: Total score 17 07/17/24 08:51 Depression Screening Interpretation: Positive Thrive Assessment: Date of Thrive Assessment Date Thrive assessed 06/13/24 07/17/24 08:17 Currently or been in a relationship where the following occur: No concerns reported Const Other: Alert oriented x3, no acute cardiorespiratory distress Neck Other: Supple, no lymphadenopathy, thyroid nonpalpable Resp Effort & Inspection: normal respiratory effort and able to speak in complete sentences Auscultation: clear to auscultation bilaterally Cardio Other: S1-S2 present regular rate and rhythm GI Palpation (GI): Soft to palpation, nontender, no guarding and Splenomegaly present Back/Spine/Pelvis Back: No back tenderness Skin Other: Hyperpigmented patches noted on anterior aspect of both lower extremities, nontender to palpation, not warm to touch General skin exam: no rashes or lesions noted Neuro Cognition (Neuro): normal cognition Gait exam (Neuro): Normal gait present Extrem General: Yes full ROM, Yes no joint enlargement, Yes no clubbing, cyanosis or edema, Yes no pedal edema, Yes no calf tenderness and Yes normal gait Psych Appearance: grossly normal and well kempt Mental Status: mental status grossly normal Speech and movement: Normal speech and movement present Affect: Anxious affect present Coding Level of Care Code Est Pt Level 4 (11505) Diagnoses Anxiety and depression F41.9; F32.A Additional Codes PHQ-9 - 87636 - PHQ-9 Billing: Yes ([id number]) MAHAMED-7 Assessment Billing - MAHAMED-7 Assessment Tool: MAHAMED-7 Assessment 77074 ([id number]) Assessment & Plan Assessment & Plan (1) Anxiety and depression: Code(s): F41.9 - Anxiety disorder, unspecified; F32.A - Depression, unspecified Category: Medical Plan: Will start her on duloxetine 30 mg per tablet taken once a day, which might help relieve anxiety and generalized body aches. Declined referral for counseling. Will see her back for follow-up in 4 weeks via telehealth see how she is doing on the medication Medications: New duloxetine 30 mg PO DAILY 30 caps 1RF
--- OUTSIDE RECORDS SUMMARY | 2024-07-17 08:27 | XMS_ITS | Clinical Summary ---
Author Organization [facility] Address [address] [place] [phone] Phone Care Team Providers Care Auto Suspension And Steering Mechanic Name Role Phone Unavailable Primary Care Provider [...]
--- OUTSIDE RECORDS SUMMARY | 2024-07-17 08:27 | XMS_ITS | Clinical Summary ---
Author Organization [facility] Address [address] [place] [address] Care Team Providers Care Folder Operator Name Role Phone Daisha Ni MD Primary Care Provider [phone] Allergies Active Allergy Reactions Criticality Noted Date [...] age to complete this topic Care Teams Folder Operator Relationship Specialty Start Date End Date Daisha Ni MD [address] [place] [address] PCP - General Internal Medicine 07/26/23
--- OUTSIDE RECORDS SUMMARY | 2024-07-17 08:27 | XMS_ITS | Clinical Summary ---
Author Organization [facility] Address [address] [place] [address] Phone Care Team Providers Care Material Control Supervisor Name Role Phone Daisha Ni MD Primary Care Provider Allergies Active Allergy Reactions Criticality Noted Date Comments Shellfish Containing Products 2024 Encounters Date Type Department Care Team Description 07/07/2024 Telephone [facility] Hematology Oncology [address] [place] [address] Abhijit Steiner MD 06/01/2024 1:24 PM EST - 06/01/2024 4:56 PM EST Emergency [facility] Emergency [address] [place] [address] Anaphylaxis, initial encounter (Primary Dx) [...] ( season) 2023 01/09/2021, 12/19/2020 Influenza Vaccine (Season Ended) 2024 02/17/2021, 01/29/2017 DTaP,Tdap,and Td Vaccines (8 - Td or [...] age to complete this topic Meningococcal B Vaccine Aged Out No l onger eligible based on patient's age to complete [...] Procedure Name Priority Date/Time Associated Diagnosis Comments [facility] 30-74 MINUTES Routine 06/01/2024 1:21 PM EST from Last 3 Months Results * MS CRITICAL CARE 30-74 MINUTES (06/01/2024 1:21 PM [...] [place] Care Teams Material Control Supervisor Relationship Specialty Start Date End Date Daisha Ni MD [address] [place] [address] PCP - General Internal Medicine 07/16/20
== END 2024-07-17 08:49 | disposition home or self-care (01) ==
LOC: HO.HMCC 08:06
PROVIDERS: PCP Internal Medicine; Visit Provider Internal Medicine
DX: F41.9 Anxiety disorder, unspecified (principal); F32.A Depression, unspecified

== ENCOUNTER → 2024-07-17 08:06 | Outpatient (BNVA) | payer OTHER, MEDICAID, SELFPAY | PROVIDERS: PCP Internal Medicine; Visit Provider Internal Medicine | DX: F41.9 Anxiety disorder, unspecified (principal); F32.A Depression, unspecified | CPT/HCPCS: 96127 ==

== ENCOUNTER 2024-08-11 09:08 | Outpatient (AMB) | payer OTHER, MEDICAID, SELFPAY ==
--- NOTE | 2024-08-11 09:06 | A.OFFPC_ITS ---
Intake Visit Reasons: 4 weeks f/up-telehealth Allergies shrimp Adverse Reaction (Uncoded 08/11/24 09:49) hives Medication List - Last Reconciled 08/12/24 by Daisha Ni MD acetaminophen 1,000 mg (2 x 500 mg) PO Q6H PRN alprazolam 0.25 mg PO .1 hour before flying PRN ascorbic acid (vitamin C) 500 mg PO DAILY ferrous sulfate 325 mg PO BID norgestimate-ethinyl estradiol 0.25-0.035 mg 1 tab PO DAILY Tobacco use date assessed: 08/11/24 Dental Screening Dental Screen Date: 08/11/24 Did you have a dental visit in the last 12 months?: Yes Did you have a dental problem in the last 6 months where you did not have access to dental care?: No Was dental information given to patient?: Patient has dentist HPI 4 weeks f/up-telehealth HPI Details 39-year-old lady with anxiety depression , here today for follow-up. She was prescribed duloxetine 30 mg which she took once a day in the morning after breakfast. States however that she only took it for 2 doses, and stopped taking as she developed some nausea with taking the medication. She states that she is able to control her anxiety now with behavioral techniques. Does not want to take anything else for now. She has an upcoming appointment already in October 2024 with [facility] for evaluation of her generalized joint pains and myalgia with positive EMMA titers, increased inflammatory markers on recent labs done, and unusual bruising on lower extremities. Has been feeling well otherwise except for low energy levels. Last CBC showed anemia has resolved, continues to take iron supplements with vitamin-C. Vitamin B12 levels are low normal. [facility] Medical History Anxiety and depression Family history of lupus erythematosus Positive EMMA (antinuclear antibody) Hx of hemolytic anemia Easy bruisability Delayed hemolytic transfusion reaction Dyslipidemia Menorrhagia History of food anaphylaxis Vitamin D deficiency Iron deficiency anemia Essential hypertension History of anemia Anxiety with flying History of COVID-19 Surgical History No pertinent past surgical history Family History Maternal Aunt Breast cancer Social History Housing: House Alcohol intake: former Patient Tobacco Use Status: Never used Tobacco e-Cigarette/Vaping Use: Never Used service: No Current occupational status: employed 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 1. Little interest or pleasure in doing things: not at all 2. Feeling down, depressed, or hopeless: several days 3. Trouble falling or staying asleep, or sleeping too much: several days 4. Feeling tired or having little energy: several days 5. Poor appetite or overeating: not at all 6. Feeling bad about yourself - or that you are a failure or have let yourself or your family down: not at all 7. Trouble concentrating on things, such as reading the newspaper or watching television: nearly every day 8. Moving or speaking so slowly that other people could have noticed. Or the opposite - being so fidgety or restless that you have been moving around a lot more than usual: not at all 9. Thoughts that you would be better off or of hurting yourself in some way: not at all Total score: 6 Depression Screening Interpretation: Positive (Stopped taking duloxetine due to side effect, depression symptoms improving without medication) Depression Screening Follow-up: Existing condition and Declines treatment Depression Screening Done: Yes 43399 - PHQ-9 Billing: Yes Source: Developed by Drs. Kristofer Milan, Adriana Lu, Josh Chase and colleagues, with an educational ela from [employer]. Thrive Questionnaire Date Thrive assessed: 06/13/24 MAHAMED-7 AMB Questionnaire MAHAMED-7 Date MAHAMED - 7 assessed: 08/11/24 Feeling nervous, anxious, or on edge: 0 = Not at all Not being able to stop or control worryin = Not at all Worrying too much about different things: 1 = Several days Trouble relaxin = Several days Being so restless that it is hard to sit still: 0 = Not at all Becoming easily annoyed or irritable: 0 = Not at all Feeling afraid as if something awful might happen: 0 = Not at all Total MAHAMED-7 score (0-4 normal; 5-9 mild; 10-14 moderate; 15-21 severe): 2 Source: Developed by Drs. Kristofer Milan, Adriana Lu, Josh Chase and colleagues, with an educational ela from [employer]. MAHAMED-7 Assessment Billing MAHAMED-7 Assessment Tool: MAHAMED-7 Assessment 78733 Review of Systems Const All systems reviewed & are unremarkable except as noted in HPI and below Physical exam (Primary Care) Tobacco/Smoking Status: Tobacco use Status Tobacco use date assessed 08/11/24 08/11/24 09:07 Patient Tobacco Use Status Never used Tobacco 08/11/24 09:07 e-Cigarette/Vaping Use Never Used 08/11/24 09:07 PHQ-9: PHQ-9 Score PHQ-9: Total score 6 08/11/24 10:02 Depression Screening Interpretation: Positive (Stopped taking duloxetine due to side effect, depression symptoms improving without medication) Depression Screening Follow-up: Existing condition and Declines treatment Thrive Assessment: Date of Thrive Assessment Date Thrive assessed 06/13/24 08/11/24 09:07 Telehealth Telehealth Telehealth Platform: [employer] Location of provider rendering services: practice address Location of patient: address on file Patient Identification confirmed using: Name, : Yes Telehealth method: video Patient verbally consented to treatment: Yes Patient verbally consented to billing insurance company: Yes Patient informed of any privacy concerns related to visit: Yes Minutes spent on Phone/Video with Pt.: 15 Coding Level of Care Code Tele Est Pt Level 3 (15174) Diagnoses Anxiety and depression F41.9; F32.A Additional Codes MAHAMED-7 Assessment Billing - MAHAMED-7 Assessment Tool: MAHAMED-7 Assessment 47620 ([id number]) PHQ-9 - 14282 - PHQ-9 Billing: Yes ([id number]) Assessment & Plan Assessment & Plan (1) Anxiety and depression: Code(s): F41.9 - Anxiety disorder, unspecified; F32.A - Depression, unspecified Category: Medical Plan: Stop taking duloxetine due to side effects of nausea, currently on alprazolam which she takes rarely, states that anxiety depression has improved, declines referral for counseling and does not want to start any maintenance medication at present time
--- OUTSIDE RECORDS SUMMARY | 2024-08-11 09:22 | XMS_ITS | Clinical Summary ---
Author Organization [facility] Address [address] [place] [id number] Phone Care Team Providers Care Flash Developer Name Role Phone Unavailable Primary Care Provider [...]
--- OUTSIDE RECORDS SUMMARY | 2024-08-11 09:22 | XMS_ITS | Clinical Summary ---
Author Organization [facility] Address [address] [place] [address] Care Team Providers Care Dividend Deposit Voucher Clerk Name Role Phone Daisha Ni MD Primary Care Provider [phone] Allergies Active Allergy Reactions Criticality Noted Date [...] age to complete this topic Care Teams Dividend Deposit Voucher Clerk Relationship Specialty Start Date End Date Daisha Ni MD [address] [place] [address] PCP - General Internal Medicine 07/26/23
--- OUTSIDE RECORDS SUMMARY | 2024-08-11 09:22 | XMS_ITS | Clinical Summary ---
Author Organization [facility] Address [address] [place] [address] Phone Care Team Providers Care Grinding Mill Operator Name Role Phone Daisha Ni MD Primary Care Provider Allergies Active Allergy Reactions Criticality Noted Date Comments Shellfish Containing Products 2024 Encounters Date Type Department Care Team Description 07/07/2024 Telephone [facility] Hematology Oncology [address] [place] [address] Abhijit Steiner MD 06/01/2024 1:24 PM EST - 06/01/2024 4:56 PM EST Emergency [facility] Emergency [address] [place] [address] Anaphylaxis, initial encounter (Primary Dx) [...] Procedure Name Priority Date/Time Associated Diagnosis Comments [place] [facility] 30-74 MINUTES Routine 06/01/2024 1:21 PM EST from Last 3 Months Results * [place] [facility] 30-74 MINUTES (06/01/2024 1:21 PM [...] [place] Care Teams Grinding Mill Operator Relationship Specialty Start Date End Date Daisha Ni MD [address] [place] [address] PCP - General Internal Medicine 07/16/20
== END 2024-08-11 10:13 | disposition home or self-care (01) ==
LOC: HO.HMCC 09:08
PROVIDERS: PCP Internal Medicine; Visit Provider Internal Medicine
DX: F41.9 Anxiety disorder, unspecified (principal); F32.A Depression, unspecified

== ENCOUNTER → 2024-08-11 09:08 | Outpatient (BNVA) | payer OTHER, MEDICAID, SELFPAY | PROVIDERS: PCP Internal Medicine; Visit Provider Internal Medicine | DX: F41.9 Anxiety disorder, unspecified (principal); F32.A Depression, unspecified; Z79.899 Other long term (current) drug therapy | CPT/HCPCS: 96127 ==

== ENCOUNTER 2024-11-13 08:50 | Outpatient (AMB) | payer OTHER, MEDICAID, SELFPAY ==
[2024-11-13 09:08] VITALS: BP 102/80; PULSE 74; RESP 15; TEMP 36.6; O2SAT 99; BMI 33.8
--- NOTE | 2024-11-13 09:08 | MHC.PC.OV ---
Vital Signs 11/13/24 09:08 Height 5 ft 4 in Weight 197 lb BMI 33.8 BP 102/80 Blood Pressure Location Lt brachial Position Sitting Respiration 15 Pulse 74 Pulse Source Pulse Oximeter Temp 97.8 F Temp Source Oral Pulse Oximetry (%) 99 Oxygen Delivery Method Room Air Intake Visit Reasons: Annual PE Intake Note: Pt is here today for her PE Allergies shellfish derived (shellfish) Adverse Reaction (Verified 11/13/24 09:37) Anaphylaxis shrimp Adverse Reaction (Uncoded 11/13/24 09:37) hives Medication List - Last Reconciled 11/13/24 by Daisha Ni MD alprazolam 0.25 mg PO .qd PRN 5 days ascorbic acid (vitamin C) 500 mg PO DAILY epinephrine 0.3 mg IM ONCE ferrous sulfate 325 mg PO BID levonorgestrel (Mirena) intrauterine DIRECTED Tobacco use date assessed: 11/13/24 Dental Screening Dental Screen Date: 11/13/24 Did you have a dental visit in the last 12 months?: Yes Did you have a dental problem in the last 6 months where you did not have access to dental care?: Yes Was dental information given to patient?: Patient has dentist HPI Annual PE HPI Details - 39-year-old female presenting today for her physical exam. - complaining of recurrent generalized body pain and fatigue , which have been present since June, with symptoms worsening at night and in the morning. Muscle flutters, pins and needles sensations, and occasional hoarseness of voice are reported. 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 - [facility] for her routine Pap and pelvic exam, overdue, last done in 2020. -complains of occasional difficulty initiating and maintaining sleep [facility] Medical History (Updated 11/19/24 @ 18:20 by Daisha Ni MD) Lumbar scoliosis Granuloma annulare Disturbed sleep rhythm Myalgia, multiple sites Anxiety and depression Family history of lupus erythematosus Positive EMMA (antinuclear antibody) Hx of hemolytic anemia Easy bruisability Delayed hemolytic transfusion reaction Dyslipidemia Menorrhagia History of food anaphylaxis Vitamin D deficiency Iron deficiency anemia Essential hypertension History of anemia Anxiety with flying History of COVID-19 Surgical History (Updated 11/19/24 @ 18:21 by Daisha Ni MD) History of section Family History Maternal Aunt Breast cancer Social History Housing: House Alcohol intake: former Patient Tobacco Use Status: Never used Tobacco e-Cigarette/Vaping Use: Never Used service: No Current occupational status: employed Cognitive needs: No Hearing needs: No Vision needs: No Questionnaire Thrive Questionnaire Date Thrive assessed: 06/13/24 I am a: Patient What is your living situation today?: I have a steady place to live Within the past 12 months, did the food you bought not last and you didn't have the money to get more?: Never true Within the past 12 months, did you worry whether your food would run out before you got money to buy more?: Never true Do you have trouble paying for medicines?: No Do you have trouble getting transportation to medical appointments?: No Do you have trouble paying your heating and electricity bill?: No Do you have trouble taking care of your child, family member or friend?: No Do you have trouble with day-to-day activities such as bathing, preparing meals, shopping, managing finances, etc.?: No Are you currently unemployed and looking for a job?: No Are you interested in more education?: No Please select the resources that you would like help with: None Currently or been in a relationship where the following occur: No concerns reported THRIVE Score: 0 MAHAMED-7 AMB Questionnaire MAHAMED-7 Date MAHAMED - 7 assessed: 08/11/24 Source: Developed by Drs. Kristofer Milan, Adriana Lu, Josh Chase and colleagues, with an educational ela from [employer]. Review of Systems Const All systems reviewed & are unremarkable except as noted in HPI and below Physical exam (Primary Care) Vital Signs: Last Vital Signs Temp 97.8 F 11/13/24 09:08 Pulse 74 11/13/24 09:08 Resp 15 11/13/24 09:08 BP 102/80 11/13/24 09:08 Pulse Ox 99 11/13/24 09:08 Oxygen Delivery Method Room Air 11/13/24 09:08 BMI result Body Mass Index 33.8 Tobacco/Smoking Status: Tobacco use Status Tobacco use date assessed 11/13/24 11/13/24 09:10 Patient Tobacco Use Status Never used Tobacco 11/13/24 09:10 e-Cigarette/Vaping Use Never Used 11/13/24 09:10 Thrive Assessment: Date of Thrive Assessment Date Thrive assessed 06/13/24 11/13/24 09:10 Currently or been in a relationship where the following occur: No concerns reported Const Other: Alert oriented x3, no acute cardiorespiratory distress Neck Other: Supple, no lymphadenopathy, thyroid nonpalpable Resp Effort & Inspection: normal respiratory effort and able to speak in complete sentences Auscultation: clear to auscultation bilaterally Cardio Other: S1-S2 present regular rate and rhythm GI Palpation (GI): Soft to palpation, nontender, no guarding and Splenomegaly present Back/Spine/Pelvis Back: No back tenderness Skin General skin exam: no rashes or lesions noted Neuro Cognition (Neuro): normal cognition Gait exam (Neuro): Normal gait present Extrem General: Yes full ROM, Yes no joint enlargement, Yes no clubbing, cyanosis or edema, Yes no pedal edema, Yes no calf tenderness and Yes normal gait Psych Appearance: grossly normal and well kempt Mental Status: mental status grossly normal Speech and movement: Normal speech and movement present Affect: normal affect Coding Level of Care Code Est Pt Prev Care 18-39y(82590) Diagnoses Annual visit for general adult medical examination with abnormal findings Z00. Chronic fatigue R53.82 Fatigue type: chronic, unspecified Disturbed sleep rhythm G47.20 Dyslipidemia E78.5 Granuloma annulare L92.0 Assessment & Plan Assessment & Plan (1) Annual visit for general adult medical examination with abnormal findings: Code(s): Z00.01 - Encounter for general adult medical examination with abnormal findings (2) Fatigue: Code(s): R53.83 - Other fatigue Qualifiers: Fatigue type: chronic, unspecified Qualified Code(s): R53.82 - Chronic fatigue, unspecified (3) Disturbed sleep rhythm: Code(s): G47.20 - Circadian rhythm sleep disorder, unspecified type Category: Medical (4) Dyslipidemia: Code(s): E78.5 - Hyperlipidemia, unspecified Category: Medical (5) Granuloma annulare: Comment: Diagnosed by skin biopsy done at [facility] dermatology Code(s): L92.0 - Granuloma annulare Category: Medical Plan Referred for sleep study to evaluate for possible sleep apnea, given the reported symptoms of disturbed sleep and excessive daytime sleepiness, which also could contribute to her chronic fatigue. A Lyme titer and cholesterol test will be conducted to rule out Lyme disease and assess cardiovascular risk, respectively. Has been seen by Rheumatology, Dr. Ye, who did further testing with regards to her polyarthralgia. Advised to get an appointment with her OBGYN for her repeat cervical cancer screening and pelvic exam, last 1 done was in 2020. The patient is advised to follow up with the supervisor dimension warehouse for management of granuloma annulare and to ensure regular Fasting lipid panel ordered today together with her Lyme titer. Reminded to get regular dental prophylaxis every 6 months and get eye exams at least every 2 years Patient was informed and verbally consented to the use of an ambient scribe for clinic note documentation during this visit. Orders: Orders Lipid Panel 11/13/24 Z13.220 - Encounter for screening for lipoid disorders Lyme IgG/IgM w/reflex to WB 11/13/24 M79.18 - Myalgia, other site, R53.83 - Other fatigue, Z00.01 - Encounter for general adult medical examination with abnormal findings, Z13.220 - Encounter for screening for lipoid disorders Referrals Sleep Medicine Referral G47.19 - Other hypersomnia, G47.20 - Circadian rhythm sleep disorder, unspecified type
--- OUTSIDE RECORDS SUMMARY | 2024-11-13 09:12 | XMS_ITS | Clinical Summary ---
Author Organization [facility] Address [address] [place] [address] Phone Care Team Providers Care Chief Meter Reader Name Role Phone Daisha Ni MD Primary Care Provider Allergies Active Allergy Reactions Criticality Noted Date Comments Shellfish Containing Products 2024 Surgical History Surgery Date Site/Laterality Comments SECTION [...] 89 06/01/2024 1:56 PM EST Temperature 37.1 C (98.8 F) 06/01/2024 1:56 PM EST Respiratory Rate 107 06/01/2024 1:56 PM EST [...] Comments Cervical Cancer Screening: Pap Smear 2007 HIV Screening 03/03/2022 Hepatitis C Screening 03/03/2022 Social Influencers of Health Screening 03/03/2022 COVID-19 Vaccine ( season) 2023 01/09/2021, 12/19/2020 Depression Screening 04/05/2024 Influenza Vaccine (#1) 2024 02/17/2021, 2016 DTaP,Tdap,and Td Vaccines (8 - [...] 5 Years) and At-Risk Patients (6 to 49 Years) Aged Out No longer eligible based on patient's age to complete this topic RSV Immunization Patients Under 20 months Aged Out No longer eligible based on patient's age to complete this topic Varicella Vaccines Aged Out No longer eligible based on patient's age to complete this topic Insurance [place] - [place] Care Teams Chief Meter Reader Relationship Specialty Start Date End Date Daisha Ni MD [address] [place] [address] PCP - General Internal Medicine 07/16/20
--- OUTSIDE RECORDS SUMMARY | 2024-11-13 09:12 | XMS_ITS | Clinical Summary ---
Author Organization [facility] Address [address] [place] [address] Care Team Providers Care Consumer Loan Manager Name Role Phone Daisha Ni MD Primary Care Provider [phone] [phone] Allergies Active Allergy Reactions Criticality Noted Date [...] 83 12/28/2023 9:38 AM EDT Temperature 36.3 C (97.3 F) 12/28/2023 9:38 AM EDT Respiratory Rate - - Oxygen Saturation 100% [...] Screening (Pap Smear) 2007 Influenza Vaccine (#1) 2024 02/17/2021 Hepatitis B Vaccines Completed 12/25/1999, 01/07/1999, 07/05/1998 Pneumococcal Vaccine Aged Out No long er eligible based on patient's age to complete this topic RSV Ped < 20 months Aged Out No longe r eligible based on patient's age to complete this topic Care Teams Consumer Loan Manager Relationship Specialty Start Date End Date Daisha Ni MD [address] [place] [address] PCP - General Internal Medicine 07/26/23
--- OUTSIDE RECORDS SUMMARY | 2024-11-13 09:12 | XMS_ITS | Clinical Summary ---
Author Organization [facility] Address [address] [place] [address] Phone Care Team Providers Care Higher Level Teaching Assistant Name Role Phone Unavailable Primary Care Provider [...] of 2 - 13+ 2-dose series) 1999 HPV Vaccines (1 - 3-dose SCDM series) 2013 COVID-19 Vaccine ( - season) 2023 Influenza Vaccines (#1) 2024 HIB Vaccines Completed 12/12/1987 MMR Vaccines Completed 12/30/1989, 08/09/1987 IPV Vaccines Completed 05/02/1992, 11/1987, 1986, Additional history exists Hepatitis B Vaccines Completed 12/25/1999, 01/07/1999, 07/05/1998 Hepatitis A Vaccines Aged Out No long [...]
== END 2024-11-13 10:06 | disposition home or self-care (01) ==
LOC: HO.HMCC 08:51
PROVIDERS: PCP Internal Medicine; Visit Provider Internal Medicine
DX: Z00.01 Encounter for general adult medical examination with abnormal findings (principal); R53.82 Chronic fatigue, unspecified; G47.20 Circadian rhythm sleep disorder, unspecified type; E78.5 Hyperlipidemia, unspecified; L92.0 Granuloma annulare

== ENCOUNTER 2024-11-13 08:50 | Outpatient (REF) | payer OTHER, MEDICAID, SELFPAY ==
[2024-11-13 13:58] LABS: Cholesterol 175 mg/dL (<200); HDL Cholesterol 37 mg/dL (>40); Triglycerides 150 mg/dL (<150)
[2024-11-14 09:09] LABS: Lyme Abs Screen <0.90 index
== END 2024-11-13 08:51 | disposition home or self-care (01) ==
LOC: HO.HMGCLDS 08:50
PROVIDERS: PCP Internal Medicine; Visit Provider Internal Medicine
DX: Z00.01 Encounter for general adult medical examination with abnormal findings (principal); R53.82 Chronic fatigue, unspecified; G47.20 Circadian rhythm sleep disorder, unspecified type; E78.5 Hyperlipidemia, unspecified; L92.0 Granuloma annulare; M79.18 Myalgia, other site; Z13.220 Encounter for screening for lipoid disorders
CPT/HCPCS: 36415; 80061; 86617; 86618

== ENCOUNTER 2025-02-21 09:06 | Outpatient (REF) | payer OTHER, MEDICAID, SELFPAY ==
--- NOTE | ~2025-02-21 | XR_ITS ---
EXAMINATION: XR KNEE 4 OR MORE VIEWS LEFT HISTORY: M25.562 - Pain in left knee COMPARISON: Correlation is made with standing AP views of both knees dated 05/26/2019. FINDINGS: Four views of the bilateral knees are submitted. Osseous mineralization is normal. There is no fracture or dislocation. The joint spaces are preserved. There is a moderate joint effusion. XR/XR knee LT 4V IMPRESSION: Moderate joint effusion. Otherwise unremarkable examination of the left knee. Electronically signed by: Kristofer Zamora MD 02/21/2025 10:13 AM JARETH LOUISE
== END 2025-02-21 09:07 | disposition home or self-care (01) ==
LOC: HO.HMGCX 09:06
PROVIDERS: PCP Internal Medicine; Visit Provider Physician Assistant Medical
DX: M25.562 Pain in left knee (principal)
CPT/HCPCS: 73564

== ENCOUNTER 2025-02-21 09:06 | Outpatient (AMB) | payer OTHER, MEDICAID, SELFPAY ==
[2025-02-21 09:21] VITALS: BP 120/70; PULSE 75; O2SAT 100; BMI 34.0
--- NOTE | 2025-02-21 09:21 | AM.OFFWIN_ITS ---
Intake Vital Signs 02/21/25 09:21 Height 5 ft 4 in Weight 198 lb BMI 34.0 BP 120/70 Blood Pressure Location Rt brachial Position Sitting Pulse 75 Pulse Source Pulse Oximeter Pulse Oximetry (%) 100 Oxygen Delivery Method Room Air Intake Visit Reasons: EP Left knee pain Intake Note: Patient presents c/o left knee pain x4-5 weeks. Severity of pain depends on movements. Patient Tobacco Use Status: Never used Tobacco Allergies shellfish derived (shellfish) Adverse Reaction (Verified 02/21/25 09:24) Anaphylaxis shrimp Adverse Reaction (Uncoded 02/21/25 09:24) hives Do you need a note to return to daycare/school/sports/work: Yes HPI HPI Comments History of Present Illness Details History of Present Illness - The patient is a 39-year-old female pr esenting with left knee pain. - The knee pain began approximately four to five weeks ago without any known injury or inciting event. - The pain is described as pressure-like , sometimes sharp, and varies in intensity. - The patient reports a sensation of swe lling, although no visible swelling is observed. - She has pain when she bends her knee b ack and when she walks. - There is no radiation of pain to the c carson or ankle. - The patient has not attempted any home interventions for pain relief. - The patient has a history of playing s [employer] but denies any prior knee injuries. - She denies numbness, tingling, swellin g, redness, warmth, calf pain, ankle pain, or foot pain. Physical Exam General: Cooperative, healthy appearing, comfortable, no acute distress and well developed Respiratory: Normal respiratory effort and able to speak in complete sentences. Clear to auscultation bilaterally Cardiovascular: Regular rate and rhythm. Normal S1 and S2 Skin: No rashes or lesions noted. Musculoskeletal: No swelling or deformity noted of the left knee. FROM of the left knee. No click noted. No TTP of the patella, medial or lateral condyle, medial or lateral meniscus, or posterior fossa. Negative anterior drawer test. Negative Naldo noted. DTR are 1+ on the LE. Negative Homans noted. FROM of the ankle. Ambulates with a steady gait. Strength is 5/5 on the LE bilaterally. Neuro: Sensation is intact on the LE bilaterally. [facility] Medical History (Updated 11/19/24 @ 18:20 by Daisha Ni MD) Lumbar scoliosis Granuloma annulare Disturbed sleep rhythm Myalgia, multiple sites Anxiety and depression Family history of lupus erythematosus Positive EMMA (antinuclear antibody) Hx of hemolytic anemia Easy bruisability Delayed hemolytic transfusion reaction Dyslipidemia Menorrhagia History of food anaphylaxis Vitamin D deficiency Iron deficiency anemia Essential hypertension History of anemia Anxiety with flying History of COVID-19 Surgical History (Updated 11/19/24 @ 18:21 by Daisha Ni MD) History of section Family History Maternal Aunt Breast cancer Social History Housing: House Alcohol intake: former Patient Tobacco Use Status: Never used Tobacco e-Cigarette/Vaping Use: Never Used service: No Current occupational status: employed Cognitive needs: No Hearing needs: No Vision needs: No Review of Systems Const All systems reviewed & are unremarkable except as noted in HPI and below Physical Exam Vital Signs: Last Vital Signs Pulse 75 02/21/25 09:21 BP 120/70 02/21/25 09:21 Pulse Ox 100 02/21/25 09:21 Oxygen Delivery Method Room Air 02/21/25 09:21 BMI result Body Mass Index 34.0 Results Reviewed Results Reviewed: will review the xray in the office Assessment & Plan Assessment & Plan (1) Left knee pain: Code(s): M25.562 - Pain in left knee Qualifiers: Chronicity: acute Qualified Code(s): M25.562 - Pain in left knee Plan Most likely strain vs arthritis vs tendonitis vs bursitis plan - rest, ice and elevation - will order an x-ray - mobic as needed for pain - will refer her to ortho - follow up with PCP Orders: Orders XR knee LT 3V Today M25.562 - Pain in left knee Referrals Orthopedics Referral M25.562 - Pain in left knee Medications: New meloxicam 7.5 mg PO DAILY 10 tabs 0RF Coding Level of Care Code Est Pt Level 4 (79736) Diagnoses Acute pain of left knee M25.562 Chronicity: acute
--- OUTSIDE RECORDS SUMMARY | 2025-02-21 17:00 | XMS_ITS | Clinical Summary ---
Author Organization [email or web address] [facility] Address [address] [place] [address] Care Team Providers Care Belt Turner Name Role Phone Daisha Ni MD Primary Care Provider [phone] Allergies Active Allergy Reactions Criticality Noted Date [...] age to complete this topic Care Teams Belt Turner Relationship Specialty Start Date End Date Daisha Ni MD [address] [place] [address] PCP - General Internal Medicine 07/26/23
--- OUTSIDE RECORDS SUMMARY | 2025-02-21 17:00 | XMS_ITS | Clinical Summary ---
Author Organization [facility] Address [address] [place] [address] Phone Care Team Providers Care Master Certified Rv Technician Name Role Phone Daisha Ni MD Primary [...] Comments Cervical Cancer Screening: Pap Smear 2007 HPV Vaccines (1 - 3-dose SCDM series) 2013 HIV Screening 03/03/2022 Hepatitis C Screening 03/03/2022 Social Influencers of Health Screening 03/03/2022 Depression Screening 04/05/2024 COVID-19 Vaccine ( season) 2024 01/09/2021, 12/19/2020 Influenza Vaccine (#1) 2024 02/17/2021, 2016 DTaP,Tdap,and Td Vaccines (8 - Td or Tdap) 07/16/2027 07/15/2017, 07/05/1998, 10/03/1990, Additional history exists RSV Immunization Adult Patients (1 - 1-dose 75+ series) 2061 HIB Vaccines Completed 12/12/1987 MMR Vaccines Completed [...] to complete this topic Insurance [place] - [place] Member Subscriber Plan / Payer (Ef fective 2024-Present) Name:Nancy Bermudez Relation to Subscriber:Self Name:Nancy Bermudez Payer ID:[id number] Group ID:Not on file Type:Not on file Address: [facility] ATTN:CLAIMS [address] [place], [place] Care Teams Master Certified Rv Technician Relationship Specialty Start Date End Date Daisha Ni MD [address] [place] [address] PCP - General Internal Medicine 07/16/20
--- OUTSIDE RECORDS SUMMARY | 2025-02-21 17:00 | XMS_ITS | Clinical Summary ---
Author Organization [facility] Address [address] [place] [id number] Phone Care Team Providers Care Bun Machine Operator Name Role Phone Unavailable Primary Care Provider [...] Vaccines (1 - 3-dose SCDM series) 2013 Influenza Vaccines (#1) 2024 COVID-19 Vaccine ( - 2024- season) 2024 HIB Vaccines Completed 12/12/1987 MMR Vaccines [...]
== END 2025-02-21 09:50 | disposition home or self-care (01) ==
PROVIDERS: PCP Internal Medicine; Visit Provider Physician Assistant Medical
DX: M25.562 Pain in left knee (principal)

== ENCOUNTER → 2025-02-21 10:02 | Outpatient (BNV) | payer OTHER, MEDICAID, SELFPAY | PROVIDERS: PCP Internal Medicine; Visit Provider Radiology Diagnostic Radiology | DX: M25.562 Pain in left knee (principal) | CPT/HCPCS: 73564 ==